=== PATIENT | male | born 1955 | race Caucasian/White ===

== ENCOUNTER 2020-03-21 04:46 | Observation (INO) ==
--- NOTE | 2020-02-25 13:42 | PAT Medication Instructions ---
Medication Instructions Date of Service February 25, 2020 Home Medications Medication Instructions Recorded potassium chloride 10 mEq 20 meq PO BID #120 cap 01/13/20 capsule,extended release tramadol 50 mg tablet 50 mg PO Q4H PRN #60 tab 01/31/20 3-in-1 Commode #1 ea 02/17/20 3-in-1 Commode #1 ea 02/17/20 Wheeled Walker #1 ea 02/17/20 metoprolol succinate 50 mg 50 mg PO BID #60 tab 02/21/20 tablet,extended release 24 hr warfarin 7.5 mg tablet 5 - 7.5 mg PO QPM potassium chloride 10 mEq capsule,extended release 20 meq PO BID tramadol 50 mg tablet 50 mg PO Q4H PRN metoprolol succinate 50 mg tablet,extended release 24 hr 50 mg PO BID aspirin [Aspir-81] 81 mg PO QAM famotidine 20 mg PO QAM finasteride 5 mg PO QAM furosemide [Lasix] 40 mg PO DAILY PRN ASK your prescriber and surgeon warfarin 7.5 mg tablet 5 - 7.5 mg PO QPM DO NOT take the morning of surgery potassium chloride 10 mEq capsule,extended release 20 meq PO BID furosemide [Lasix] 40 mg PO DAILY PRN Take morning of surgery With a small sip of water, OTHERWISE NOTHING TO EAT OR DRINK AFTER MIDNIGHT: tramadol 50 mg tablet 50 mg PO Q4H PRN (if needed, may be taken up to four hours before surgery) metoprolol succinate 50 mg tablet,extended release 24 hr 50 mg PO BID aspirin [Aspir-81] 81 mg PO QAM famotidine 20 mg PO QAM finasteride 5 mg PO QAM Take evening before surgery potassium chloride 10 mEq capsule,extended release 20 meq PO BID tramadol 50 mg tablet 50 mg PO Q4H PRN (if needed) metoprolol succinate 50 mg tablet,extended release 24 hr 50 mg PO BID furosemide [Lasix] 40 mg PO DAILY PRN (if needed) Other Notes If you have any questions please call us at [phone] or [phone] or [phone] or [phone]
--- NOTE | 2020-02-28 08:22 | Anesthesiology Consultation ---
Date of Service February 28, 2020 Assessment & Plan (1) Encounter for pre-operative examination: COVID Status: As of 02/24 nurse assessment, patient denies travel to endemic area, known exposure/sick contacts, or symptoms of COVID19. Preoperative COVID19 testing to be completed prior to surgery. Cardiology Clearance 02/14/20 = "Cardiac castellon has been stable, no evidence of heart failure, no arrhythmias, no angina. Patient is intermediate risk for moderate risk surgery. He had prosthetic mitral valve in 10/2019 for endocarditis so any procedure does put him at higher risk of valve infection especially in the first 6 months. He does understand this." K+ mildly elevated at 5.3 on pre-op testing. Case d/w Dr. Trujillo. Given normal Cr specimen likely slightly hemolyzed. Spoke to patient -- he is not taking Lasix or KCL supplement. Advised to avoid K-rich foods prior to surgery. Recheck AM DOS. Chart Review Chart Review: Acceptable Risk for Surgery and Patient seen in Pre Admission Testing Teaching & Discussion Instructed NPO after midnight before surgery, except medications with 15 cc of water. Medication instructions provided according to the PAT guidelines. History Surgery Operation Date: 03/21/20 10:40 Proposed Procedures p Right Total Hip Arthroplasty - Zhneg Rice MD Height/Weight Height: 5 ft 11 in Weight: 80.5 kg Allergies Allergy/AdvReac Type Severity Reaction Status Date / Time No Known Drug Allergies Allergy Verified 02/23/20 15:02 Medications Home Medications Medication Instructions Recorded Confirmed Last Taken warfarin 7.5 mg tablet 5 - 7.5 mg PO QPM 12/28/19 02/23/20 Unknown potassium chloride 10 mEq 20 meq PO BID #120 cap 01/13/20 02/23/20 Unknown capsule,extended release tramadol 50 mg tablet 50 mg PO Q4H PRN #60 tab 01/31/20 02/23/20 Unknown 3-in-1 Commode #1 ea 02/17/20 02/17/20 Unknown 3-in-1 Commode #1 ea 02/17/20 02/17/20 Unknown Wheeled Walker #1 ea 02/17/20 02/17/20 Unknown metoprolol succinate 50 mg 50 mg PO BID #60 tab 02/21/20 02/23/20 Unknown tablet,extended release 24 hr aspirin [Aspir-81] 81 mg PO QAM 02/23/20 02/23/20 Unknown famotidine 20 mg PO QAM 02/23/20 02/23/20 Unknown finasteride 5 mg PO QAM 02/23/20 02/23/20 Unknown furosemide [Lasix] 40 mg PO DAILY PRN 02/23/20 02/23/20 Unknown Past Medical History Medical History Anxiety " WHITE COAT" SYNDROME-DOES NOT WANT TO SEE OPERATING ROOM CVA (cerebral vascular accident) 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 Has fully recovered with no deficits. Degenerative joint disease of right hip Enlarged prostate GERD (gastroesophageal reflux disease) Mitral valve disease s/p mitral valve repair 11/11/19 [facility] On anticoagulant therapy WARFARIN S/P MV REPLACEMENT Paroxysmal A-fib Post-op after valve replacement, converted to SR with amio bolus. On coumadin for valve replacement currently. Completed Zio patch, results pending. Per cardio if afib found patient will need assisted AC. Subarachnoid hemorrhage 11/03/19 Exercise / Class Metabolic Activity III < 4 Walking/Shop/Light housework (Using walker for ambulation due to debilitating hip pain, denies any chest pain or SOB) Past Family History Family History Mother Heart disease Breast cancer Family history of diabetes mellitus Father Prostate cancer Colorectal cancer Past Surgical History Surgical History History of colonoscopy History of heart valve replacement MITRAL VALVE 11/04/2019 [facility]U [facility] History of vasectomy Past Anesthesia History No Hx of Anesthesia Complications and No Family Hx of Anesthesia Complications History of PONV No Hx of PONV and No Hx of Motion Sickness Social History Smoking Status: Never smoker Do You Dip or Chew Tobacco: No Hx Alcohol Use: Yes Alcohol type: wine alcohol intake frequency: holidays/special occasions only Alcohol Intake Frequency Comment: RARELY Hx Substance Use: No Review of Systems Pt denies any recent chest pain, shortness of breath, palpitations, cough, fever or URI. Physical Exam Vital Signs BP: 142/90 P: 61bpm SPO2: 98% RA T: 97.8 F R: 16 ENMT Mouth: + dental restorations (partial crown upper) and + chipped teeth (one premolar upper L); no loose teeth Thyromental Distance: > or= 3.5 Finger Breadths (3.5) Mallampati Class: I Neck normal visual inspection, + limited neck extension (mildly) and + facial hair (very short goatee) Respiratory normal respiratory effort Auscultation: lungs clear to auscultation bilaterally Cardiovascular Rate/Rhythm: regular rate and regular rhythm Heart Sounds: no murmur Extremities: no edema Testing Laboratory Results 02/28/20 08:40 02/28/20 08:40 PT 23.3 Seconds (9.0-12.0) H 02/28/20 08:40 INR 2.3 (0.9-1.1) H 02/28/20 08:40 APTT 42.8 Seconds (21.0-31.0) H 02/28/20 08:40 Blood Type O Positive 02/28/20 08:40 Antibody Screen NEGATIVE 02/28/20 08:40 Electrocardiogram Date: 12/03/19 Findings: + ST @ (119 bpm) Cannot r/o anterior infarct, age undetermined. *Patient cleared by cardio with this EKG. RRR with rate in 60s at [facility]. Chest X-Ray Date: 11/17/19 Stable bibasilar atelectasis and small L pleural effusion. *Lungs CTA B/L on exam at [facility], pt asymptomatic. Echocardiogram Date: 11/14/19 EF: 60-64% No pericardial effusion is noted. Normal LV size and systolic function. Septal motion is abnormal consistent with a postoperative state. The regional left ventricular wall motion is otherwise normal. RV size is qualitatively normal. Image resolution does not allow for accurate measurement. Right ventricular systolic function is qualitatively normal. Mild aortic valve regurgitation is present. There is a mitral valve prosthesis present. Significant mitral valve prosthesis stenosis is absent. Significant mitral valve prosthesis regurgitation is absent. The aortic root is moderately enlarged.
[2020-02-28 11:36] LABS: Basophils # (auto) 0.02 K/uL (0-0.2); Basophils % (auto) 0.3 %; Eosinophils # (auto) 0.14 K/uL (0-0.5); Eosinophils % (auto) 1.9 %; Hematocrit (blood only) 42.7 % (42-52); Hemoglobin 13.4 g/dL (14.0-18.0); Immature Granulocytes # (auto) 0.01 K/uL (0.00-0.02); Immature Granulocytes % (auto) 0.1 %; Lymphocytes % (auto) 20.2 %; Mean Corpuscular Hemoglobin 29.6 pg (25-34); Mean Corpuscular Hgb Conc 31.4 g/dL (32-36); Mean Corpuscular Volume 94.3 fL (80-100); Mean Platelet Volume 10.8 fL (7.4-10.4); Monocytes # (auto) 0.94 K/uL (0.11-0.59); Monocytes % (auto) 12.7 %; Neutrophils # (auto) 4.82 K/uL (1.4-6.5); Neutrophils % (auto) 64.8 %; Platelet Count 239 K/uL (130-400); RDW Coefficient of Variation 15.2 % (11.5-14.5); RDW Standard Deviation 52.3 fL (36.4-46.3); Red Blood Count 4.53 M/uL (4.7-6.1); White Blood Count 7.43 K/uL (4.8-10.8)
[2020-02-28 11:44] LABS: BUN Creatinine Ratio 23.7 (10-20); Calcium 9.3 mg/dl (8.5-10.1); Creatinine Clr Calc Pharmacy 83.9 ml/min; Est GFR (African American) 97.1; Est GFR (Non-African American) 83.8; Potassium 5.3 mmol/L (3.5-5.1)
[2020-02-28 11:51] LABS: C Reactive Protein 0.6 mg/dl (0-0.29)
[2020-02-28 11:52] LABS: INR 2.3 (0.9-1.1); Partial Thromboplastin Ratio 1.5; Partial Thromboplastin Time 42.8 Seconds (21.0-31.0); Prothrombin Time 23.3 Seconds (9.0-12.0)
--- NOTE | 2020-03-05 11:58 | History and Physical Report ---
DATE OF ADMISSION: 03/21/2020 CHIEF COMPLAINT: Right hip pain and discomfort. HISTORY OF PRESENT ILLNESS: The patient is a 64-year-old gentleman from [place], who presents for treatment of his right hip. He has a very complex medical history recently due to bacterial endocarditis and some septic emboli along with a subarachnoid hemorrhage. This all resulted in a mitral valve replacement and some open heart surgery and then a course of IV antibiotics. This was all done at [facility]. He had septic emboli, which caused some degree of TIA and mini strokes, but minimal residual sequelae. This all happened in October. He had 6 weeks of IV antibiotics and now off all antibiotics and doing well. He is now debilitated by his right hip pain. He has been through extensive rehab, but markedly limited by his hip pain and discomfort. He has been using a walker and has not been able to get off of this due to his hip problem. He describes groin pain. He has pain with every step. He denies any recent fevers. He has been followed by his demolition hammer operator at [facility]. He did have some AFib at this time as well and was put on Coumadin. They are currently reevaluating him to determine whether they come off the Coumadin. PAST MEDICAL HISTORY: Past medical history is significant for: 1. Atrial fibrillation, recent onset with currently in sinus tachycardia and wearing a monitor to determine whether he still needs the anticoagulation. 2. Sleep apnea. 3. Sepsis with endocarditis and septic emboli causing TIA and mini strokes. 4. Bacterial endocarditis, status post 6 weeks of IV antibiotics in October. 5. Gastroesophageal reflux disease. 6. Back pain/sciatica. 7. BPH. 8. Kidney stones. PAST SURGICAL HISTORY: Previous surgeries include open heart surgery for infection treatment as well as repair of his mitral valve. ALLERGIES: None. CURRENT MEDICINES: Include: 1. Aspirin. 2. Finasteride. 3. Unspecified med 4. Coumadin. 5. Tramadol. 6. Metoprolol. 7. Cardio-Plus. 8. Unspecified med 9. Boswellia. SOCIAL HISTORY: A 64-year-old male. 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 He does not smoke. No significant alcohol intake. FAMILY HISTORY: Noncontributory. REVIEW OF SYSTEMS: Significant for atrial fibrillation, on Coumadin. Denies any current chest pain or shortness of breath. No DVT or PE. He has had this endocarditis with some septic emboli causing some TIAs. PHYSICAL EXAMINATION: GENERAL: Shows a pleasant, middle-aged male. He looks clinically much healthier than his reported recent history. HEENT: Benign. NECK: Supple, no lymphadenopathy. LUNGS: Clear to auscultation. HEART: Regular rate and rhythm. ABDOMEN: Soft, nontender, nondistended. EXTREMITIES: Reveals grossly neurovascularly intact except as follows. Examination of the right hip and leg reveals the patient walks with use of a walker. Walks with a markedly antalgic gait. He is about a centimeter short on the right side compared to left. He has very stiff hip with limited motion. He has got no knee effusion. Mild diffuse edema distally. X-RAYS: X-rays of the right hip reviewed. It shows advanced right hip DJD. He has complete loss of superior joint space with collapse of the femoral head and cystic changes on both sides of the joint. He has got large medial acetabular osteophyte. There are no signs of bone destruction or infection. He has x-rays of his knee which revealed fairly minimal arthritic change. ASSESSMENT: A 64-year-old male, in the past reasonably healthy, with a recent bout of bacterial endocarditis with a valve replacement and extensive management complicated by some atrial fibrillation as well as septic emboli. It appears that he has recovered from this and markedly debilitated by his hip pain. He has been unable to get off the walker and back to work due to his hip problem. He would like to have his hip replaced. PLAN: We talked about treatment options. He is certainly at increased risk for infection, but it looks like his infection is cleared. He has been pretty well cleared by the demolition hammer operator, but they are trying to determine whether he needs to stay on the Coumadin. After extensive discussion, he understands the increased risk and would like to proceed. We are going to proceed with a right total hip replacement. The risks and benefits of this procedure were explained to the patient including but not limited to DVT, PE, , infection, neurological injury, vascular injury, bleeding problem, pain, limited range of motion, stiffness, failure to relieve his symptoms, incomplete relief of symptoms, need for further surgery in future, fracture, leg length inequality, nerve palsy and infection. I do think he is at slightly increased risk of infection, but I do not think it is markedly increased based on the above. He seems to be adequately treated for his endocarditis and I do not think there is much more he can do. We did check some labs and his sed rate is just slightly elevated at 30 and C-reactive protein slightly elevated at 0.60. He is to determine whether he needs to be on Coumadin. He will need to stop his Coumadin 5 days preop. They may take him off Coumadin beforehand. We talked about taking metoprolol the morning of surgery. We are going to proceed as long as he proceeds with a complete cardiac clearance. He will be discharged to home using [facility]. DANITA
[2020-03-21 05:58] LABS: INR 1.1 (0.9-1.1); Partial Thromboplastin Ratio 1.1; Partial Thromboplastin Time 29.3 Seconds (21.0-31.0); Prothrombin Time 11.2 Seconds (9.0-12.0)
[2020-03-21] MEDS ORDERED: FAMOTIDINE 20 MG TAB PO SCH (06:00)
[2020-03-21] MEDS ORDERED: ACETAMINOPHEN 500 MG TAB PO SCH (06:00)
[2020-03-21] MEDS ORDERED: METOCLOPRAMIDE HCL 10 MG TABLET PO SCH (06:00)
[2020-03-21] MEDS ORDERED: CEFAZOLIN 2000MG 2,000 MG/15 ML SYR IV SCH (06:00)
[2020-03-21] MEDS ORDERED: TRANEXAMIC ACID 1,000 MG **IV Pre-op IV SCH (06:00)
[2020-03-21] MEDS ORDERED: LR 60ML/HR IV SCH (06:00)
[2020-03-21] MEDS ORDERED: SCOPOLAMINE 1.5 MG TDSY TD SCH (06:00)
[2020-03-21] MEDS ORDERED: LR 500ML BOLUS, THEN 15ML/HR IV SCH (06:00)
[2020-03-21] MEDS ORDERED: BUPIVACAINE LIPOSOME/PF 266 MG, BUPIVACAINE/EPINEPHRINE 50 ML, SODIUM CHLORIDE 0.9% 30 ... INFIL SCH (06:00)
[2020-03-21] MEDS ORDERED: GABAPENTIN 600 MG DOSE PO SCH (06:00)
[2020-03-21 06:12] LABS: BUN Creatinine Ratio 25.1 (10-20); Calcium 8.8 mg/dl (8.5-10.1); Creatinine Clr Calc Pharmacy 71.6 ml/min; Est GFR (African American) 80.9; Est GFR (Non-African American) 69.8; Potassium 3.7 mmol/L (3.5-5.1)
[2020-03-21] MEDS ORDERED: MIDAZOLAM HCL 1 MG/ML 2ML VIAL ONE ×2 (06:24→06:25)
[2020-03-21] MEDS ORDERED: fentaNYL citrate 100 MCG/2 ML VIAL ONE (06:24)
[2020-03-21] MEDS ORDERED: MoRPHine SULFATE PF 1 MG/ML 10 ML AMP/VIAL ONE (06:25)
[2020-03-21] MEDS ORDERED: BUPIVACAINE 0.5 % 5 MG/1 ML PF 10ML VIAL ONE (06:33)
[2020-03-21] MEDS ORDERED: BUPIVACAINE 0.5 % 5 MG/1 ML MPF 30ML VIAL ONE (06:48)
[2020-03-21] MEDS ORDERED: BACITRACIN INJ 50,000 UNIT VIAL ONE (06:48)
[2020-03-21] MEDS ORDERED: EPINEPHrine INJ 1 MG/ML AMP ONE (06:48)
--- NOTE | 2020-03-21 06:52 | History & Physical Bridge Note ---
Date of Service March 21, 2020 History & Physical Bridge Note I have examined the patient, reviewed the History & Physical and in the interval since the performance of the History & Physical I have noted the following changes of clinical significance: no changes noted
[2020-03-21] MEDS ORDERED: fentaNYL citrate 100 MCG/2 ML VIAL IV PRN (07:12)
[2020-03-21] MEDS ORDERED: ePHEDrine sulfate 50 MG/ML AMP IV PRN (07:12)
[2020-03-21] MEDS ORDERED: ATROPINE SULFATE 0.1 MG/ML 10ML SYR IV PRN (07:12)
[2020-03-21] MEDS ORDERED: HYDROmorphone INJ 1 MG/ML SYRINGE IV PRN (07:12)
[2020-03-21] MEDS ORDERED: ONDANSETRON INJ 2 MG/ML 2 ML VIAL IV PRN ×2 (07:12→09:35)
[2020-03-21] MEDS ORDERED: HYDROmorphone INJ 2 MG/ML SYR/VIAL ONE (07:23)
[2020-03-21] MEDS ORDERED: DEXAMETHASONE SOD INJ 4 MG/ML VIAL ONE (07:52)
[2020-03-21] MEDS ORDERED: PROPOFOL IV EMULSION 10 MG/ML 20 ML VIAL IV ONE ×2 (07:52→08:10)
[2020-03-21] MEDS ORDERED: LIDOCAINE HCL 2% 2 ML VIAL/AMP(20MG/ML) INFIL ONE (07:52)
[2020-03-21] MEDS ORDERED: ONDANSETRON INJ 2 MG/ML 2 ML VIAL ONE (07:52)
--- NOTE | 2020-03-21 08:29 | Post Operative Brief Note ---
PG Immediate Post Op with CF Date of Surgery March 21, 2020 Pre & Post Diagnosis Operation Date: 03/21/20 07:00 Pre-Op Diagnosis: Right Hip Advanced Degenerative Joint Disease Post-Op Diagnosis: Right Hip Advanced Degenerative Joint Disease I identified the patient and participated in the time-out.: Yes Procedure Operation Date: 03/21/20 07:00 Actual Procedures p Right Total Hip Arthroplasty--Uncemented(Right) - Zheng Rice MD Surgeon Zheng Rice MD Library Technical Assistant Ashley, [facility] Estimated Blood Loss 200 Findings Consistent with Post-Op Diagnosis Fluids 1000 cc Specimens Specimen Description: A. Right Femoral Head Anesthesia Type General Complications none Disposition Accompanied Patient To Recovery: Yes Disposition: Recovery Room
[2020-03-21] MEDS ORDERED: ePHEDrine sulfate 50 MG/ML AMP ONE (08:37)
--- NOTE | 2020-03-21 08:41 | Operative Report ---
Post Operative Report Pre & Post Diagnosis Operation Date: 03/21/20 07:00 Pre-Op Diagnosis: Right Hip Advanced Degenerative Joint Disease Post-Op Diagnosis: Right Hip Advanced Degenerative Joint Disease I identified the patient and participated in the time-out.: Yes Procedure Operation Date: 03/21/20 07:00 Actual Procedures p Right Total Hip Arthroplasty--Uncemented(Right) - Zheng Rice MD Surgeon Zheng Rice MD Fountain Helper Ashley, PAC Estimated Blood Loss 200 Findings Consistent with Post-Op Diagnosis Operative findings revealed advanced right hip DJD. He had extensive grade 4 [id number] disease of the femoral head and acetabulum. He had a large medial osteophyte. He had about a 1 cm leg length discrepancy. Fluids 1000 cc. Specimens Right femoral head sent for pathology. Drains None. 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 He did have a recent sepsis and bacteremia and pretty sick and a heart surgery for bacterial endocarditis in October. He recovered from this but was unable get back to work due to severe hip pain. He was unable to get off these walker. X-rays show advanced hip DJD. He was evaluated by the service member and cleared for surgery. He elected proceed with total hip replacement. He certainly understood the increased risk due to his recent bacteremia. Description of Procedure Operative implants consist of: 1. Biomet G7 size 58 mm acetabular shell. 2. 6.5 cancellus acetabular screws 1 of 35 mm length and 1 of 25 mm length. 3. [place] hole eliminator. 4. Highly cross-linked polyethylene liner with a +5 offset with a 58 mm outer diameter and 36 mm inner diameter. 5. Nicole Corail size 13 KLA femoral stem. 6. +8.5/36 mm ceramic articular ball. Patient was taken to the operating identified and placed on the operating table supine position protectors were properly padded. IV antibiotics arrived by anesthesia team. A general anesthetic was implemented as the patient refused a spinal. The patient was then placed in the left lateral decubitus position. An axillary roll was placed. A Stulberg hip positioner was used for positioning. The right hip and leg were then prepped and draped in usual sterile fashion. A posterior lateral approach to the right hip was then performed to a curvilinear incision centered over the greater trochanter. Sharp dissection got through subcutaneous tissue down to the IT band gluteal fascia the IT band gluteal fascia incised longitudinally in line with skin incision. The underlying greater truck bursa was excised. The piriformis and external rotators were tagged and taken off the posterior aspect hip joint capsule. Gr eat care was taken throughout the procedure protect the sciatic nerve at all times. A posterior capsulotomy was then performed leaving a large flap for later repair. Hip was internally rotated and dislocated. A femoral neck osteotomy cut was then made with Final Cut about a centimeter above the lesser trochanter. Femoral head was removed and sent for pathology. The femur was retracted anteriorly. Attention drawn the acetabulum. The acetabulum labrum was excised per the pulmonary fat was excised. Sequential reaming the acetabular was then performed begin with size 47 progressing up to a 57. A 58 mm Biomet G7 acetabular shell was then placed in about 40 degrees lateral opening and 20 degrees of anteversion. It was fixed with two 6.5 cancellus acetabular screws. Trial liner was placed. Attention drawn the femur. The proximal femur was entered with a cookie-cutter followed by canal finder. I then broached begin the size 8 and progressing up to 13. We got excellent fit at 13. Calcar reamer was used smooth and off the calcar. I then trialed the hip. The soft tissue tension was quite lax with the standard implants and therefore I used a +5 offset acetabular liner and a +8.5 head in order to improve soft tissue tension and laxity. Hip was fully stable in full extension and external rotation flexion 10 9 degrees internal rotation over 50 degrees. Leg lengths seemed appropriate and equal. We elect to place these implants. All trial implants were removed. An apex hole luminary was placed. A +5 offset acetabular liner was placed. A KLA 13 femoral stem was impacted in position. A +8.5/36 mm ceramic articular ball was placed. Hip was located once again found to be stable. Attention drawn toward closing. The wounds irrigated closed muscle pulsatile lavage solution. I did inject locally with 60 cc of half percent Marcaine with epinephrine. Patient did receive 1 g of tranexamic acid at the beginning of the surgery. The hip was irrigated extensively. The posterior capsule and external rotators then repaired through drill holes in the posterior trochanter with #2 Tycron suture. The IT band gluteal fascia then closed in 1 PDS suture running fashion the subcutaneous tissue then closed in 2 layers the deep layer #1 Vicryl suture and subcutaneous tissues with 2-0 Dexon suture in a buried interrupted fashion. Skin was closed with skin zuleima. Leg was then cleaned dried a sterile dressing composed Xeroform, 4 x 4's, sterile ABD pad and foam tape was applied. The patient then placed on the transport cart and then brought out of general anesthesia and transferred to the recovery room in stable condition. The patient tolerated procedure well no complications. I attest to the content of the Intraoperative Record and any orders documented therein. Any exceptions are noted below.
--- NOTE | 2020-03-21 08:56 | XRay Report ---
XR hip 1V RT w pelvis HISTORY: 65 years-old Male IN PACU - A/P PELVIS and LATERAL HIP right hip total joint arthroplasty COMPARISON: Right hip radiographs 01/29/2020 TECHNIQUE: AP view of the pelvis with crosstable lateral view of the right hip FINDINGS: Right hip total joint arthroplasty demonstrates satisfactory alignment. Lateral skin zuleima are note d along with expected postsurgical soft tissue swelling and deep tissue air. No acute fracture or ret ained foreign body. Surgical clips project over the scrotum. Mild left posteroparietal arthritis. IMPRESSION: Right hip total joint arthroplasty with expected postoperative findings. ACT 112: Negative or not required by law. The above report was generated using voice recognition software. It may contain grammatical, syntax o r spelling errors. Electronically signed by: Jeff Paris M.D. 03/21/2020 8:54 AM
[2020-03-21] MEDS ORDERED: TAMSULOSIN HCL 0.4 MG CAP PO PRN (09:35)
[2020-03-21] MEDS ORDERED: WARFARIN SOD 7.5 MG TAB PO ONE ×2 (09:35→16:00)
[2020-03-21] MEDS ORDERED: POTASSIUM CHLORIDE 20 MEQ TABCR PO PRN (09:35)
[2020-03-21] MEDS ORDERED: FUROSEMIDE 40 MG TAB PO PRN (09:35)
[2020-03-21] MEDS ORDERED: bisacodyL 10 MG SUPP PR PRN (09:35)
[2020-03-21] MEDS ORDERED: HYDROmorphone INJ 0.5 MG/0.5 ML SYR IV PRN (09:35)
[2020-03-21] MEDS ORDERED: NALOXONE HCL 0.4 MG/1 ML VIAL/CARP IV PRN (09:35)
[2020-03-21] MEDS ORDERED: MAGNESIUM HYDROXIDE SUSP 30 ML UDC PO PRN (09:35)
[2020-03-21] MEDS ORDERED: METOCLOPRAMIDE HCL INJ 5 MG/ML 2 ML VIAL IV PRN (09:35)
--- NOTE | 2020-03-21 10:14 | Anesthesiology Progress Note ---
Date of Service March 21, 2020 Anesthesia Post Procedure Vital Signs Vital Signs: Temp Pulse Pulse Resp BP Pulse Ox 03/21/20 09:49 68 16 111/67 98 03/21/20 09:15 36.4 C L 68 14 108/68 96 03/21/20 09:05 65 16 105/66 97 03/21/20 08:55 67 17 108/67 97 03/21/20 08:45 65 15 104/63 99 03/21/20 08:36 36.2 C L 72 12 118/67 100 03/21/20 05:50 36.8 C 65 18 142/94 H 98 Transfer of Care Handoff Completed per policy Notes Mental Status: alert / awake / arousable and participated in evaluation Patient Amnestic to Procedure: Yes Nausea / Vomiting: adequately controlled Pain: adequately controlled Airway Patency, RR, SpO2: stable & adequate BP & HR: stable & adequate Hydration State: stable & adequate Anesthetic Complications: no major complications apparent and Pt Satisfied with anesthetic care
[2020-03-21] MEDS: METOPROLOL SUCC 50MG EXT REL TAB PO SCH ×2 (11:24→21:15)
[2020-03-21] MEDS: SODIUM CHLORIDE 0.9% 1000ML 1,000 ML IV SCH ×2 (11:28→20:40)
[2020-03-21] MEDS: MULTIVITAMIN TAB PO SCH (11:29)
[2020-03-21] MEDS: ASPIRIN 81 MG ECTAB PO SCH (11:30)
[2020-03-21] MEDS: DOCUSATE SODIUM 100 MG CAP PO SCH ×2 (11:30→20:36)
[2020-03-21] MEDS: FAMOTIDINE 20 MG TAB PO SCH (11:30)
[2020-03-21] MEDS: KETOROLAC 30 MG/ML VIAL IV SCH ×3 (11:35→21:46)
[2020-03-21] MEDS: ACETAMINOPHEN 500 MG TAB PO SCH ×2 (13:59→21:46)
[2020-03-21] MEDS: FINASTERIDE 5 MG TAB PO SCH (13:59)
[2020-03-21] MEDS: CEFAZOLIN 2000MG 2,000 MG/15 ML SYR IV SCH ×2 (14:01→21:45)
[2020-03-21] MEDS ORDERED: TRANEXAMIC ACID / 0.7% NACL 1,000 MG/100 ML BAG IV SCH (14:33)
[2020-03-21] MEDS: CHECK SCOPOLAMINE PATCH PLACEMENT SCH ×2 (16:29→23:58)
--- NOTE | 2020-03-21 17:58 | Progress Notes ---
DATE: 03/21/2020 SUBJECTIVE: A 65-year-old gentleman postop from right total hip replacement. He is doing well. Not having any pain yet. No chest pain or shortness of breath. Not feeling dizzy or lightheaded. OBJECTIVE: VITAL SIGNS: Temperature is 36.4. Vital signs are stable. GENERAL: Shows a pleasant middle-aged male. He is sitting up in bed and talking to his and looks quite comfortable. LUNGS: Clear to auscultation. HEART: Has a regular rate and rhythm. ABDOMEN: Soft, nontender, nondistended. EXTREMITIES: Grossly neurovascularly intact except as follows: Examination of the right hip and leg reveals the leg lengths are equal. Hip is located. Dressing is clean, dry and intact. Thigh is soft and supple. He can dorsiflex and plantarflex his foot appropriately. He is neurologically intact. X-RAYS: X-rays of the right hip from recovery room are reviewed. It shows a right uncemented total hip arthroplasty. Components looked to be in good position. No signs of problems. ASSESSMENT: A 65-year-old gentleman postoperative from right total hip replacement, doing well. His pain is controlled. Hip is located. He is neurologically intact. PLAN: 1. DVT prophylaxis including thigh-high TEDs, SCDs, and we will start him back on Coumadin tonight. We will load him with 10 mg tonight and probably 7 mg tomorrow and then start him on his regular dose after that. 2. PT/OT. Weight bear as tolerated. Right total hip protocol. 3. Pain control, doing well with current pain regimen. 4. IV antibiotics x24 hours. 5. Disposition: Plan to discharge to home with some home health and his 's assistance once medically stable and adequately recovered.
[2020-03-21] MEDS: ASCORBIC ACID 500 MG TAB PO SCH (18:24)
[2020-03-21] MEDS: FERROUS GLUCONATE 324 MG TAB PO SCH (18:25)
[2020-03-21] MEDS: SENNA 8.6 MG TAB PO SCH (20:36)
[2020-03-22] MEDS: TRAMADOL HCL 50 MG TABLET PO PRN ×3 (00:01→22:04)
[2020-03-22] MEDS: KETOROLAC 30 MG/ML VIAL IV SCH (04:33)
[2020-03-22] MEDS: ACETAMINOPHEN 500 MG TAB PO SCH ×3 (06:14→22:06)
[2020-03-22 06:18] LABS: Basophils # (auto) 0.01 K/uL (0-0.2); Basophils % (auto) 0.1 %; Eosinophils # (auto) 0.07 K/uL (0-0.5); Eosinophils % (auto) 0.9 %; Hemoglobin 10.9 g/dL (14.0-18.0); Immature Granulocytes # (auto) 0.02 K/uL (0.00-0.02); Immature Granulocytes % (auto) 0.3 %; Lymphocytes # (auto) 1.25 K/uL (1.2-3.4); Lymphocytes % (auto) 15.6 %; Mean Corpuscular Hemoglobin 29.8 pg (25-34); Mean Corpuscular Hgb Conc 32.1 g/dL (32-36); Mean Corpuscular Volume 92.9 fL (80-100); Mean Platelet Volume 10.4 fL (7.4-10.4); Monocytes # (auto) 1.49 K/uL (0.11-0.59); Monocytes % (auto) 18.6 %; Neutrophils # (auto) 5.16 K/uL (1.4-6.5); Neutrophils % (auto) 64.5 %; Platelet Count 150 K/uL (130-400); RDW Coefficient of Variation 14.9 % (11.5-14.5); RDW Standard Deviation 50.7 fL (36.4-46.3); Red Blood Count 3.66 M/uL (4.7-6.1)
[2020-03-22] MEDS: SODIUM CHLORIDE 0.9% 1000ML 1,000 ML IV SCH (06:18)
[2020-03-22 06:34] LABS: BUN Creatinine Ratio 21.3 (10-20); Calcium 8.5 mg/dl (8.5-10.1); Creatinine Clr Calc Pharmacy 84.6 ml/min; Est GFR (African American) 98.9; Est GFR (Non-African American) 85.3; Potassium 3.9 mmol/L (3.5-5.1)
[2020-03-22 06:41] LABS: INR 1.1 (0.9-1.1); Prothrombin Time 11.5 Seconds (9.0-12.0)
[2020-03-22] MEDS ORDERED: WARFARIN SOD 7.5 MG TAB PO SCH (08:00)
--- NOTE | 2020-03-22 08:02 | Progress Notes ---
DATE: 03/22/2020 SUBJECTIVE: A 65-year-old gentleman postop day 1 from a right hip replacement. He is doing pretty well. Feeling a little bit more sore today. No chest pain or shortness of breath. Not feeling dizzy or lightheaded. OBJECTIVE: VITAL SIGNS: Temperature 36.8. Vital signs stable. GENERAL: Shows a pleasant elderly male. He is lying in bed, looks comfortable. EXTREMITIES: Examination of the right hip and leg reveals his leg lengths to be equal. Dressing is clean, dry, and intact. He can dorsiflex and plantarflex his foot appropriately. He is neurologically intact. Thigh is soft and supple. LABORATORY DATA: Hemoglobin is 10.9. Hematocrit 34.0. Electrolytes are stable. His INR is 1.1. ASSESSMENT: A 65-year-old gentleman postop day 1 from a right hip replacement, doing pretty well. Pain is controlled. Hip is located. He is neurologically intact. PLAN: 1. DVT prophylaxis including thigh-high TEDs, SCDs, and back on Coumadin. 2. PT/OT. He can weightbear as tolerated. Right total hip protocol. 3. Pain control, doing pretty well with current pain regimen. 4. Disposition: Plan to discharge to home with some home health likely tomorrow depending on how well his pain goes and his recovery goes.
[2020-03-22] MEDS: CHECK SCOPOLAMINE PATCH PLACEMENT SCH ×3 (08:28→23:53)
[2020-03-22] MEDS: DOCUSATE SODIUM 100 MG CAP PO SCH ×2 (08:30→22:05)
[2020-03-22] MEDS: ASCORBIC ACID 500 MG TAB PO SCH ×2 (08:30→17:51)
[2020-03-22] MEDS: FERROUS GLUCONATE 324 MG TAB PO SCH ×2 (08:30→17:52)
[2020-03-22] MEDS: MULTIVITAMIN TAB PO SCH (08:31)
[2020-03-22] MEDS: FAMOTIDINE 20 MG TAB PO SCH (08:31)
[2020-03-22] MEDS: ASPIRIN 81 MG ECTAB PO SCH (08:31)
[2020-03-22] MEDS: FINASTERIDE 5 MG TAB PO SCH (08:32)
[2020-03-22] MEDS: METOPROLOL SUCC 50MG EXT REL TAB PO SCH ×2 (08:32→22:06)
[2020-03-22] MEDS: SENNA 8.6 MG TAB PO SCH (22:06)
[2020-03-23] MEDS: ACETAMINOPHEN 500 MG TAB PO SCH ×2 (05:24→13:39)
[2020-03-23 06:29] LABS: INR 1.4 (0.9-1.1); Prothrombin Time 14.7 Seconds (9.0-12.0)
[2020-03-23] MEDS: FERROUS GLUCONATE 324 MG TAB PO SCH (07:53)
[2020-03-23] MEDS: CHECK SCOPOLAMINE PATCH PLACEMENT SCH (07:58)
[2020-03-23] MEDS: TRAMADOL HCL 50 MG TABLET PO PRN ×2 (07:59→13:56)
[2020-03-23] MEDS ORDERED: WARFARIN SOD 5 MG TAB PO ONE (08:00)
--- NOTE | 2020-03-23 08:22 | Progress Notes ---
DATE: 03/23/2020 SUBJECTIVE: A 65-year-old gentleman postop day 2 from a right hip replacement. He is having a bit more soreness today. No chest pain or shortness of breath. Not feeling dizzy or lightheaded. Therapy went reasonably well. OBJECTIVE: VITAL SIGNS: Temperature 37.0. Vital signs stable. GENERAL: Shows a pleasant, middle-aged male. He is lying in bed and looks pretty comfortable. EXTREMITIES: Examination of the right hip and leg reveals the dressing to be clean, dry and intact. Leg lengths are equal. He can dorsiflex and plantarflex his foot appropriately. He is neurologically intact. LABORATORY DATA: INR is 1.4. ASSESSMENT: A 65-year-old gentleman postop day 2 from right hip replacement, doing pretty well. His pain is controlled. He is neurologically intact. A little bit more muscle soreness which is not unexpected. INR is still not quite therapeutic. PLAN: 1. DVT prophylaxis including thigh-high TEDs, SCDs. He is back on Coumadin. We will put him back on his standard dose today. 2. PT/OT. Weight bear as tolerated. Right total hip protocol. 3. Pain control, doing well with current pain regimen. He is having some muscle soreness which is not unexpected. 4. Disposition: Plan to discharge to home with some home health later today.
[2020-03-23] MEDS: ASPIRIN 81 MG ECTAB PO SCH (08:53)
[2020-03-23] MEDS: MULTIVITAMIN TAB PO SCH (08:53)
[2020-03-23] MEDS: FAMOTIDINE 20 MG TAB PO SCH (08:53)
[2020-03-23] MEDS: DOCUSATE SODIUM 100 MG CAP PO SCH (08:53)
[2020-03-23] MEDS: FINASTERIDE 5 MG TAB PO SCH (08:53)
[2020-03-23] MEDS: ASCORBIC ACID 500 MG TAB PO SCH (08:53)
[2020-03-23] MEDS: METOPROLOL SUCC 50MG EXT REL TAB PO SCH (08:53)
--- NOTE | 2020-03-28 15:43 | Discharge Summary ---
Date of Service March 28, 2020 Admission HPI Per Admitting Provider Documented in the H&P Admission Exam (Per Admitting) Constitutional Documented in the H&P Discharge Data Consultations 03/22/20 08:00 Consult Case Management - Discharge Planning Routine Procedures Performed Operation Date: 03/21/20 07:00 Actual Procedures p Right Total Hip Arthroplasty--Uncemented(Right) - Zheng Rice MD Hospital Course (1) Status post total hip replacement, right: 65-year-old male admitted on 03/21/2020 underwent total hip replacement. He tolerated the procedure well and there were no complications. He was transferred to the PACU postoperatively and later to the orthopedic for further care. He was given Ancef for antibiotic prophylaxis. He was given CARLY s tockings, SCDs, and Coumadin for DVT prophylaxis. His INR was monitored daily and his Coumadin was dosed accordingly. His hemoglobin hematocrit and vital signs are monitored during his hospital stay and remained stable. He did not require blood transfusions. There were no complications during his hospital stay By postoperative day 2 he was tolerating a regular diet, pain was controlled with oral pain medicine, he was participating in physical therapy. On postop day 2 was discharged home set up with home health services. He was given printed discharge instructions as well as new prescriptions for extra strength Tylenol and tramadol. Continue physical therapy. He is weightbearing as tolerated. Continue CARLY stockings. Continue total hip precautions. Follow-up in approximately 2 weeks postop or sooner if any problems or concerns. Coding Level of Care Code None Diagnoses Status post total hip replacement, right Z96.641
== END 2020-03-23 14:22 | disposition home health service (06) ==
LOC: 3E 04:46 → ASU 04:46

== ENCOUNTER 2024-07-30 06:25 | Observation (INO) ==
--- NOTE | 2024-07-08 08:54 | Anesthesiology Consultation ---
Date of Service July 08, 2024 Assessment & Plan (1) Encounter for pre-operative examination: - Infectious disease screening: Per assessment on 07/08/24- No known recent infectious disease contacts or current infectious disease symptoms. - Outpatient joint assessment: Pt currently scheduled for inpatient pathway. If surgeon requests review for outpatient joint pathway, patient is not recommended candidate for outpatient joint program from anesthesia standpoint based on available information. 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 Atrial fibrillation post op was on anticoagulation for few motnhs [sic].. CVA secondary to septic emboli with scattered focci Subarachnoid hemorrhage 11/03/2019.. Mild aortic valve regurgitation.. Aortic root enlargement 4.5 cm on echo.. History of SVT 2014.. TERRY on CPAP.. History of MSSA endocarditis of mitral valve 2019.. Ancelmo is here for follow up.. Has been back able to do his daily activities without problems denies chest pain.. does have occasional shortness of breath with more than minimal activity.. No dizziness or lightheadedness or syncopal episodes.. Echo reviewed stable valve function.. Needs prophylaxis for dental procedures.. Sinus tachycardia.. On Metoprolol xl 50 twice daily.. Aortic root moderately enlarged: No increase in size.. Dyslipidemia on pravastatin 10 mg.. Return in about 1 year" - S/P Right NIKIA (03/21/2020): Grade 1 view, MAC#3, ETT 7.5 at [facility] - Patient concern/request: "Does not want to see the inside of the OR" Chart Review Chart Review: Acceptable Risk for Surgery and Patient seen in Pre Admission Testing Teaching & Discussion Pre-Anesthesia Teaching/Discussion Notes: Instructed NPO after midnight before surgery,except medications with 15 cc of water. Medication instructions provided according to the PAT guidelines. History Surgery Operation Date: 07/30/24 12:35 Proposed Procedures p Left Total Hip Arthroplasty - Zheng Rice MD Height/Weight Height: 5 ft 11 in Weight: 91.4 kg Allergies Allergy/AdvReac Type Severity Reaction Status Date / Time corn Allergy Mild Nausea/vomi Verified 07/08/24 08:57 ting No Known Drug Allergies Allergy Verified 07/08/24 08:57 Medications Home Medications Medication Instructions Recorded Confirmed Last Taken aspirin 81 mg tablet,delayed 81 mg PO QAM 02/23/20 07/08/24 03/21/20 03:30 release (Aspir-) metoprolol succinate 50 mg 50 mg PO BID #180 tabs 01/15/24 07/08/24 Unknown tablet,extended release 24 hr famotidine 20 mg tablet 20 mg PO QAM #90 tabs 02/17/24 07/08/24 Unknown abiraterone 250 mg tablet 1,000 mg PO QAM 05/04/24 07/08/24 Unknown clonazepam 0.5 mg tablet (Klonopin) 0.5 mg PO HS PRN Sleep 05/04/24 07/08/24 Unknown prednisone 5 mg tablet 5 mg PO QAM 05/04/24 07/08/24 Unknown finasteride 5 mg tablet 5 mg PO QAM #90 tabs 05/20/24 07/08/24 Unknown tramadol 50 mg tablet 50 mg PO Q8H PRN pain #60 tabs 06/21/24 07/08/24 Unknown Wheeled Walker #1 ea 06/25/24 06/25/24 Unknown walker #1 ea 06/28/24 Unknown bicalutamide 50 mg tablet 50 mg PO UD 07/08/24 07/08/24 Unknown leuprolide (3 month) 22.5 mg (3 0 mg IM Q3M 07/08/24 07/08/24 Unknown month) intramuscular syringe kit (Lupron Depot) pravastatin 10 mg tablet 10 mg PO QPM 07/08/24 07/08/24 Unknown tamsulosin 0.4 mg capsule 0.4 mg PO QPM 07/08/24 07/08/24 Unknown Past Medical History Medical History BPH (benign prostatic hyperplasia) Degenerative joint disease of right hip Enlarged prostate GERD (gastroesophageal reflux disease) History of anemia History of anxiety Previous "white coat" issues resolved per patient History of CVA (cerebrovascular accident) (2019) 2019 2 septic emboli from endocarditis, with scattered focci No deficits HTN (hypertension) Hx of colonic polyps Hx of subarachnoid hemorrhage (2019) [facility], no residual issues Hyperlipidemia Mitral valve disease s/p MVR (2019), last echo 10/2023 TERRY on CPAP Paroxysmal A-fib Post-op after valve replacement, converted to SR with amio bolus per records Prostate cancer + mets to right hip Had XRT 05/20- at [facility] SVT (supraventricular tachycardia) Follows with [facility] cardio Exercise / Class Metabolic Activity II 4-5 Yardwork/Stairs/Walk up hill (one FS: No CP, no SOB) Past Family History Family History Mother , 70yo Heart disease Breast cancer Diabetes Myocardial infarction Father Prostate cancer Colorectal cancer Myocardial infarction Daughter Ovarian cancer Past Surgical History Surgical History History of heart valve replacement (2019) MVR History of postoperative nausea and vomiting History of vasectomy Hx of colonoscopy with polypectomy Hx of prostate biopsy (03/16/24) In-office (Dr. Costa) Status post total hip replacement, right (03/21/20) Right NIKIA (03/21/2020): Grade 1 view, MAC#3, ETT 7.5 at [facility] Past Anesthesia History No Hx of Anesthesia Complications and No Family Hx of Anesthesia Complications History of PONV History of PONV (Nausea (colonoscopy), PONV (Right NIKIA)) Social History Smoking Status: Never smoker Do You Dip or Chew Tobacco: No Hx Alcohol Use: Yes (Occassional;) Alcohol type: wine and hard liquor alcohol intake frequency: holidays/special occasions only Hx Substance Use: No Review of Systems Patient denies chest pain, shortness of breath, dyspnea on exertion, fever, chills, cough, wheezing, palpitations. Physical Exam Vital Signs BP 147/76 P 87 TEMP 97.8 SP02 96%RA RESP 16 Physical Full cervical extension range of motion. Full TMJ range of motion. TMD 3 finger breaths Mallampati Score II Dentition: missing molars Lungs: clear throughout to auscultation Cardiac: regular rate and rhythm, no murmurs noted Spine: normal Carotid arteries: negative bruit Extremities: no LE edema Lab Results Anesthesia Preop Results Results Anesthesia Widget: WBC 5.81 K/ul (4.8-10.8) 07/08/24 Hgb 13.9 g/dl (14.0-18.0) L 07/08/24 Hct 41.4 % (42.0-52.0) L 07/08/24 Plt 131 K/uL (130-400) 07/08/24 PT 10.6 Seconds (9.0-12.0) 07/08/24 PTT 25 Seconds (21-31) 07/08/24 INR 1.0 (0.9-1.1) 07/08/24 Blood Type O Positive 07/08/24 Antibody Screen NEGATIVE 07/08/24 Testing Laboratory Results 07/07/24 SODIUM 137 POTASSIUM 4.9 CHLORIDE 103 CO2 26 BUN 21 CREATININE 1.0 GLUCOSE 86 Electrocardiogram Date: 07/08/24 SB at 52bpm. "Otherwise normal ECG" Echocardiogram Date: 10/28/23 LVEF 60-64%. No LV mural thrombus. Nondilated cardiac chambers. Trace AI. [place] epic bioprosthetic mitral valve is well-seated. Significant mitral valve prosthesis stenosis/regurgitation absent. Moderately enlarged aortic root (3.7 cm). No significant change compared to 10/2021 per report. Other Testing PET CT Skull to mid-thigh Date: 04/02/[address] findings: No acute intracranial hemorrhage observed within visualized portions of the skull base. Sequela of prior splenic infarct with splenic atrophy/scarring. Residual splenic tissue demonstrates typical radiotracer activity. No large pleural or pericardial effusion. Suspected mitral valve pros thesis/augmentation. No significant pericardial effusion. No acute focal consolidation. Patent central airways. No pneumothorax. Liver, gallbladder unremarkable. No hydronephrosis. Bladder is not distended. Metallic streak artifact from right hip prosthesis partially obscures pelvis. There is diverticulosis of the colon. There is no bowel dilatation. There is no abdominal aortic aneurysm. Clips present in the scrotum may reflect sequela of prior vasectomy. Median sternotomy wires are observed and appear intact without evidence of sternal dehiscence. Right metallic hip prosthesis observed. IMPRESSION: Focal radiotracer activity in the prostate consistent with known prostate cancer. Focal activity in a sclerotic right posterior acetabular lesion, likely metastasis.
--- NOTE | 2024-07-08 09:04 | PAT Medication Instructions ---
Medication Instructions Date of Service July 08, 2024 Home Medications Medication Instructions Recorded metoprolol succinate 50 mg 50 mg PO BID #180 tabs 01/15/24 tablet,extended release 24 hr famotidine 20 mg tablet 20 mg PO QAM #90 tabs 02/17/24 finasteride 5 mg tablet 5 mg PO QAM #90 tabs 05/20/24 tramadol 50 mg tablet 50 mg PO Q8H PRN pain #60 tabs 06/21/24 Wheeled Walker #1 ea 06/25/24 walker #1 ea 06/28/24 aspirin 81 mg tablet,delayed release (Aspir-) 81 mg PO QAM metoprolol succinate 50 mg tablet,extended release 24 hr 50 mg PO BID famotidine 20 mg tablet 20 mg PO QAM abiraterone 250 mg tablet 1,000 mg PO QAM clonazepam 0.5 mg tablet (Klonopin) 0.5 mg PO HS PRN Sleep prednisone 5 mg tablet 5 mg PO QAM finasteride 5 mg tablet 5 mg PO QAM tramadol 50 mg tablet 50 mg PO Q8H PRN pain bicalutamide 50 mg tablet 50 mg PO UD leuprolide (3 month) 22.5 mg (3 month) intramuscular syringe kit (Lupron Depot) 0 mg IM Q3M pravastatin 10 mg tablet 10 mg PO QPM tamsulosin 0.4 mg capsule 0.4 mg PO QPM ASK your prescriber and surgeon abiraterone 250 mg tablet 1,000 mg PO QAM bicalutamide 50 mg tablet 50 mg PO UD leuprolide (3 month) 22.5 mg (3 month) intramuscular syringe kit (Lupron Depot) 0 mg IM Q3M aspirin 81 mg tablet,delayed release (Aspir-) 81 mg PO QAM Take morning of surgery With a small sip of water, OTHERWISE NOTHING TO EAT OR DRINK AFTER MIDNIGHT: metoprolol succinate 50 mg tablet,extended release 24 hr 50 mg PO BID famotidine 20 mg tablet 20 mg PO QAM prednisone 5 mg tablet 5 mg PO QAM finasteride 5 mg tablet 5 mg PO QAM tramadol 50 mg tablet 50 mg PO Q8H PRN pain (if needed) Take evening before surgery metoprolol succinate 50 mg tablet,extended release 24 hr 50 mg PO BID clonazepam 0.5 mg tablet (Klonopin) 0.5 mg PO HS PRN Sleep (if needed) tramadol 50 mg tablet 50 mg PO Q8H PRN pain (if needed) pravastatin 10 mg tablet 10 mg PO QPM tamsulosin 0.4 mg capsule 0.4 mg PO QPM Other Notes If you have any questions please call us at [phone] or [phone] or [phone] or [phone]
--- NOTE | 2024-07-24 19:02 | History & Physical Report ---
Date of Service July 24, 2024 Assessment & Plan (1) Degenerative joint disease of left hip: 69-year-old gentleman 4 years out from a right hip replacement with multiple medical comorbidities including history of bacterial endocarditis along with current prostate cancer under treatment. He is got advanced left hip arthritis. He is markedly debilitated by this and like to have his left hip replaced. Plan: Plac[facility] to take him to the operating room and do a left total hip replacement. The risks and benefits this procedure were explained. The patient understands and desires to proceed. He is planned to be discharged to home with some home health and his 's assistance. Will use aspirin for DVT p rophylaxis. (2) Status post total hip replacement, right: (3) HTN (hypertension): (4) Hyperlipidemia: (5) Prostate cancer: (6) History of CVA (cerebrovascular accident): (7) Hx of subarachnoid hemorrhage: (8) History of anemia: History of Present Illness Chief Complaint: . Progressive left hip pain and discomfort. Primary Care Provider: Urbano Chavez DO . The patient is a 69-year-old gentleman well-known to me from a previous right hip replacement done 4 years ago. 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 He had extensive treatment for this and recovered. He had his right hip replaced 4 years ago and is done well from this. Over the past 2 years he developed increased pain discomfort and stiffness in his left hip. He now like present for surgical treatment. The patient has been recently diagnosed with prostate cancer with a small mets to his right acetabulum. Has been radiated. He is on some chemotherapy and doing pretty well. Left hip debilitating and he like to have it checked. He is got groin and thigh pain. Said no recurrent history of infection or sepsis in the past 4 to 5 years. Allergies Allergy/AdvReac Type Severity Reaction Status Date / Time corn Allergy Mild Nausea/vomi Verified 07/08/24 08:57 ting No Known Drug Allergies Allergy Verified 07/08/24 08:57 Home Medications Medication Instructions Recorded Confirmed Type aspirin 81 mg tablet,delayed 81 mg PO QAM 02/23/20 07/08/24 History release (Aspir-) metoprolol succinate 50 mg 50 mg PO BID #180 tabs 01/15/24 07/08/24 Rx tablet,extended release 24 hr famotidine 20 mg tablet 20 mg PO QAM #90 tabs 02/17/24 07/08/24 Rx abiraterone 250 mg tablet 1,000 mg PO QAM 05/04/24 07/08/24 History clonazepam 0.5 mg tablet (Klonopin) 0.5 mg PO HS PRN Sleep 05/04/24 07/08/24 History prednisone 5 mg tablet 5 mg PO QAM 05/04/24 07/08/24 History finasteride 5 mg tablet 5 mg PO QAM #90 tabs 05/20/24 07/08/24 Rx tramadol 50 mg tablet 50 mg PO Q8H PRN pain #60 tabs 06/21/24 07/08/24 Rx Wheeled Walker #1 ea 06/25/24 06/25/24 Rx walker #1 ea 06/28/24 Rx bicalutamide 50 mg tablet 50 mg PO UD 07/08/24 07/08/24 History leuprolide (3 month) 22.5 mg (3 0 mg IM Q3M 07/08/24 07/08/24 History month) intramuscular syringe kit (Lupron Depot) tamsulosin 0.4 mg capsule 0.4 mg PO QPM 07/08/24 07/08/24 History pravastatin 10 mg tablet 10 mg PO QPM #90 tabs 07/20/24 Rx Past Med/Surg History Problem List Degenerative joint disease of left hip GERD without esophagitis Medical History History of anemia Hx of subarachnoid hemorrhage (2019) [facility], no residual issues History of CVA (cerebrovascular accident) (2019) 10/17 septic emboli from endocarditis, with scattered focci No deficits Hx of colonic polyps History of anxiety Previous "white coat" issues resolved per patient Prostate cancer + mets to right hip Had XRT 05/20- at [facility] TERRY on CPAP SVT (supraventricular tachycardia) Follows with [facility] cardio Hyperlipidemia HTN (hypertension) BPH (benign prostatic hyperplasia) Paroxysmal A-fib Post-op after valve replacement, converted to SR with amio bolus per records Mitral valve disease s/p MVR (2019), last echo 10/2023 Enlarged prostate GERD (gastroesophageal reflux disease) Degenerative joint disease of right hip Surgical History History of postoperative nausea and vomiting Hx of colonoscopy with polypectomy Hx of prostate biopsy (03/16/24) In-office (Dr. Costa) Status post total hip replacement, right (03/21/20) Right NIKIA (03/21/2020): Grade 1 view, MAC#3, ETT 7.5 at [facility] History of heart valve replacement (2019) MVR History of vasectomy Family History Mother , 70yo Heart disease Breast cancer Diabetes Myocardial infarction Father Prostate cancer Colorectal cancer Myocardial infarction Daughter Ovarian cancer Social History Smoking Status: Never smoker Second Hand Exposure: No; Do You Dip or Chew Tobacco: No; Tobacco Cessation Education Requested by Patient: No Hx Alcohol Use: Yes Alcohol type: wine and hard liquor Hx Substance Use: No Preferred Language: [place] Communication Ability: Effective Visual Impairment: No Limitations Hearing Ability: Normal Spectroscopist Required: No Beliefs That Will Affect Care: None marital status: Current Living Situation: Spouse current occupational status: employed current occupation: painter How many Children do You have: 1 Other Information That Helps Us Care for You: No Feels Safe at Home: Yes Safety Concerns: Feels Safe At This Time Diet: regular caffeine: No during the past year weight has: remained stable Assistive Devices: CPAP and Glasses Review of Systems All systems reviewed & are unremarkable except as noted in HPI & below. Physical Exam . Physical examination reveals a pleasant healthy appearing male. Examination of the left hip and leg reveals patient ambulates with a markedly antalgic gait. About a half a centimeter shorter on the side compared to the other side. Got a very stiff hip with limited internal rotation. Is got pain with internal rotation. Negative straight leg raise. No knee effusion. He is neurologically intact. Constitutional WD/WN, vitals as above Respiratory normal respiratory effort, lungs clear to auscultation Cardiovascular RRR, no murmur, no edema Gastrointestinal (Abdomen) normal bowel sounds, soft, nontender, no hepatosplenomegaly Results & Data Results & Data Laboratory Results . Laboratory results reveal a normal white cell count. His sed rate is 9 and CRP is less than 0.50. Diagnostic Findings . X-rays of the left hip were reviewed. Shows advanced left hip arthritis. Got complete loss of his superior joint space. Flattening of the femoral head. Got subchondral sclerosis. His right hip replacement looks in good position and healed in nicely. No signs of problems. PG Care Time/CCT Total # of Minutes Spent Total Time Spent with Patient: Total time spent is greater than 50% in coordination of care (as documented) at patient's floor/unit and/or counseling patient: Coding Level of Care Code None Diagnoses Degenerative joint disease of left hip M16.12 Status post total hip replacement, right Z96.641 HTN (hypertension) I10 Hyperlipidemia E78.5 Prostate cancer C61 History of CVA (cerebrovascular accident) Z86.73 Hx of subarachnoid hemorrhage Z86.79 History of anemia Z86.2
[~2024-07-30 06:25] MED LIST: BUPIVACAINE 0.5 % 5 MG/1 ML PF 10ML VIAL ONE
--- NOTE | 2024-07-30 06:39 | History & Physical Bridge Note ---
Date of Service July 30, 2024 History & Physical Bridge Note I have examined the patient, reviewed the History & Physical and in the interval since the performance of the History & Physical I have noted the following changes of clinical significance: no changes noted
[2024-07-30] MEDS: LR 500ML BOLUS, THEN 15ML/HR IV SCH (07:05)
[2024-07-30] MEDS: LR 60ML/HR IV SCH (07:15)
[2024-07-30] MEDS: FAMOTIDINE 20 MG TAB PO SCH (07:15)
[2024-07-30] MEDS: CeleBREX 200 MG CAP PO SCH (07:19)
[2024-07-30] MEDS: METOCLOPRAMIDE HCL 10 MG TABLET PO SCH (07:19)
[2024-07-30] MEDS: ACETAMINOPHEN 500 MG TAB PO SCH ×2 (07:19→14:42)
[2024-07-30] MEDS ORDERED: MIDAZOLAM HCL 1 MG/ML 2ML VIAL ONE ×2 (07:59→08:30)
[2024-07-30] MEDS ORDERED: fentaNYL citrate PF 100 MCG/2 ML VIAL ONE (08:00)
[2024-07-30] MEDS ORDERED: LIDOCAINE 2% 2 ML VIAL/AMP(20MG/ML) INFIL ONE (08:00)
[2024-07-30] MEDS ORDERED: PROPOFOL IV EMULSION 10 MG/ML 20 ML VIAL IV ONE (08:00)
[2024-07-30] MEDS ORDERED: MoRPHine SULFATE PF 1 MG/ML 10 ML AMP/VIAL ONE (08:11)
[2024-07-30] MEDS ORDERED: PROMETHAZINE HCL 6.25 MG in SODIUM CHLORIDE 0.9% 50 ML IV PRN (08:22)
[2024-07-30] MEDS ORDERED: ONDANSETRON INJ 2 MG/ML 2 ML VIAL IV PRN (08:22)
[2024-07-30] MEDS ORDERED: ATROPINE SULFATE 0.1 MG/ML 10ML SYR IV PRN (08:22)
[2024-07-30] MEDS ORDERED: fentaNYL citrate PF 100 MCG/2 ML VIAL IV PRN (08:22)
[2024-07-30] MEDS ORDERED: ePHEDrine sulfate 50 MG/ML AMP IV PRN (08:22)
[2024-07-30] MEDS ORDERED: HYDROmorphone INJ 1 MG/ML SYRINGE IV PRN (08:22)
[2024-07-30] MEDS: TRANEXAMIC ACID 1,000 MG **IV Pre-op IV SCH (08:40)
[2024-07-30] MEDS: ceFAZolin 2000MG 2,000 MG/15 ML SYR IV SCH ×2 (08:48→17:31)
[2024-07-30] MEDS ORDERED: VASOPRESSIN 20 UNIT/ML VIAL ONE ×2 (09:08→09:13)
[2024-07-30] MEDS ORDERED: ALBUMIN HUMAN 5% 12.5 GM/250 ML VIAL IV ONE (09:08)
[2024-07-30] MEDS ORDERED: ePHEDrine sulfate 50 MG/5 ML SYR ONE (09:16)
[2024-07-30] MEDS ORDERED: PHENYLEPHRINE 100MCG/ML 5ML SYR ONE (09:17)
[2024-07-30] MEDS ORDERED: ePHEDrine sulfate 50 MG/ML AMP ONE (09:17)
[2024-07-30] MEDS ORDERED: ONDANSETRON INJ 2 MG/ML 2 ML VIAL ONE (09:18)
[2024-07-30] MEDS: BUPIVACAINE/EPINEPHRINE 0.5% MPF 1:200,000 30 ML VIAL ONE (09:30)
--- NOTE | 2024-07-30 10:28 | Operative Report ---
PG Post Operative Report Pre & Post Diagnosis Operation Date: 07/30/24 08:50 Pre-Op Diagnosis: Degenerative joint disease of left hip Post-Op Diagnosis: Degenerative joint disease of left hip I identified the patient and participated in the time-out.: Yes Procedure Operation Date: 07/30/24 08:50 Actual Procedures p Left Total Hip Arthroplasty - Zheng Rice MD Surgeon Zheng Rice MD Marine Firefighter Rusty Ramirez PA-C Estimated Blood Loss 100 Findings Consistent with Post-Op Diagnosis Specimens Left femoral head sent for pathology. Anesthesia Type Spinal MAC Complications none Disposition Accompanied Patient To Recovery: No Indications Patient is a 69-year-old gentleman who was 4 years out from a right hip replacement. Over the past several years he has developed increased pain discomfort in his left hip. X-rays show a marked progression of hip arthritis in the left hip with advanced disease. He failed conservative measures. He elected proceed with surgical treatment. Description of Procedure Operative implants consist of: 1. Biomet G7 size 56 mm acetabular shell. 2. 6.5 cancellous acetabular screws 1 of 35 mm length and 1 of 30 mm length. 3. [place] hole manager department. 4. Highly cross-linked polyethylene liner with a 56 mm outer diameter, 36 mm inner diameter with a crawford placed inferior and posterior. 5. DePuy Corail I size 15 KLA femoral stem. 6. +12/36 mm ceramic articular ball. The patient was taken to the operating, identified, placed on the operating table in the supine position. All contact areas were appropriately padded. IV antibiotics fibra anesthesia team. A spinal anesthetic had been implemented holding area. The patient is then placed in the right lateral decubitus position. An axillary roll was placed. Distal Birkett position was used for positioning. Left hip and leg were then prepped and draped in usual sterile fashion. A posterolateral approach to the left hip was then performed to a curvilinear incision centered over the greater trochanter. Sharp dissection was got through subcutaneous tissue down below the IT band gluteal fascia. The IT band gluteal fascia incised longitudinally in line with skin incision. The underlying greater bursa was excised. The piriformis and external rotators along with the posterior hip joint capsule then released from the posterior aspect the hip as a single layer. The hip was internally rotated and dislocated. A femoral neck osteotomy cut was made with Final Cut about 10 mm above the lesser trochanter. Femoral head was removed. Should for pathology. The femur was retracted anteriorly. Attention drawn the acetabulum. The acetabular labrum was excised. The pulmonary fat was excised. Sequential reaming the acetabular was then performed again with a size 47 progressing up to 55. Reamed a little bit with a 56 reamer and then placed a 56 mm Biomet G7 acetabular shell in about 40 degrees lateral opening and 20 degrees of anteversion. It was fixed with two 6.5 screws. A trial liner was placed. Attention drawn the femur. The proximal femur was entered with a cookie cutter followed by canal finder. I broached beginning with size 8 and progressing up to a 15. Got excellent fitted to 15. We trialed the hip and with the +5 articular ball soft tissue tension was once again quite lax similar to the other side. Therefore we elected to place a +12 head which provided more appropriate soft tissue tension and much better stability. We did elect to place a crawford inferior and posterior to maximize the stability in flexion. His leg lengths seemed equal. We elected to place these implants. All trial implants were removed. An apex hole manager department was placed. Highly cross-linked polyethylene liner was placed. The crawford of the liner was placed inferior and posterior. A size 15 KLA femoral stem was impacted in position. A +12/36 mm ceramic articular ball was placed. Hip was located and once again found to be stable. Attention drawn toward closing. The wound was irrigated coconuts pulsatile lavage solution. We did inject locally with 60 cc of half percent Marcaine with epinephrine. Posterior capsule and external rotators then repaired through drill holes in the posterior trochanter with #2 Tycron suture. The IT band gluteal fascia was then closed with #1 PDS suture running fashion. Subcutaneous tissue was then closed with 2 layers with a deep layer #1 Vicryl suture and subcutaneous tissues with 2-0 Dexon suture in a buried interrupted fashion. Skin was closed with skin zuleima. Leg was then cleaned and dried a sterile dressing with Xeroform, 4 fours, ABD pad and foam tape was applied. Patient then transferred to the recovery room in stable condition. Patient tolerated procedure well and there were no complications. Rusty Ramirez, my physician biology laboratory assistant, was present for the entire procedure. His assistance was essential and required for appropriate patient positioning, prepping and draping, surgical exposure, performing the technical details of the operation, placement the implants, closure of the wound, and placement of the sterile bandage. I attest to the content of the Intraoperative Record and any orders documented therein. Any exceptions are noted below.
--- NOTE | 2024-07-30 11:12 | XRay Report ---
XR hip 1V LT w pelvis CLINICAL HISTORY: Postoperative evaluation. COMPARISON: Left hip radiographs June 25, 2024. FINDINGS: Alignment of the total left hip arthroplasty is anatomic. There is no periprosthetic fract ure or unexpected radiopaque foreign body. There are skin zuleima and acetabular screws. Right hip ar throplasty is intact. IMPRESSION: Expected findings following total left hip arthroplasty. ACT 112: Negative or not required by law. Electronically signed by: Randy Wilson M.D. 07/30/2024 11:10 AM
[2024-07-30] MEDS ORDERED: bisacodyL 10 MG SUPP PR PRN (12:08)
[2024-07-30] MEDS ORDERED: LEUPROLIDE 22.5 MG IM SCH (12:08)
[2024-07-30] MEDS ORDERED: ALUMINUM/MAGNESIUM SUSP 30 ML UDC PO PRN (12:08)
[2024-07-30] MEDS ORDERED: HYDROmorphone INJ 0.5 MG/0.5 ML SYR IV PRN (12:08)
[2024-07-30] MEDS ORDERED: NALOXONE HCL 0.4 MG/1 ML VIAL/CARP IV PRN (12:08)
[2024-07-30] MEDS ORDERED: MAGNESIUM HYDROXIDE SUSP 30 ML UDC PO PRN (12:08)
[2024-07-30] MEDS ORDERED: traMADol HCL 50 MG TABLET PO PRN (12:08)
[2024-07-30] MEDS ORDERED: clonazePAM 0.5 MG TAB PO PRN (12:08)
[2024-07-30] MEDS ORDERED: METOCLOPRAMIDE HCL INJ 5 MG/ML 2 ML VIAL IV PRN (12:08)
--- NOTE | 2024-07-30 13:57 | Anesthesiology Progress Note ---
Date of Service July 30, 2024 Anesthesia Post Procedure Vital Signs Vital Signs: Temp Pulse Resp BP Pulse Ox O2 Del Method O2 Flow Rate 07/30/24 12:50 71 20 104/65 95 Room Air 07/30/24 12:20 68 16 95/58 L 95 Room Air 07/30/24 11:50 75 18 101/62 97 Room Air 07/30/24 11:35 72 16 95/58 L 97 Room Air 07/30/24 11:20 75 15 95/60 L 97 Room Air 07/30/24 11:05 74 13 99/61 L 94 Room Air 07/30/24 10:50 36.4 C L 74 15 97/64 L 95 Room Air 07/30/24 10:40 73 16 101/64 92 Room Air 07/30/24 10:30 76 19 108/67 96 Oxymask 4 07/30/24 10:20 70 20 105/59 L 96 Oxymask 4 07/30/24 10:11 36.1 C L 75 16 105/62 96 Oxymask 4 07/30/24 06:46 36.5 C 62 18 148/88 H 99 Room Air Pain Intensity Left Hip: Pain Intensity: 5 Transfer of Care Handoff Completed per policy Notes Mental Status: alert / awake / arousable and participated in evaluation Nausea / Vomiting: adequately controlled Pain: adequately controlled Airway Patency, RR, SpO2: stable & adequate BP & HR: stable & adequate Hydration State: stable & adequate Neuraxial Anesthesia: was administered Anesthetic Complications: no major complications apparent and Pt Satisfied with anesthetic care
[2024-07-30] MEDS ORDERED: ACETAMINOPHEN 500 MG TAB PO SCH (14:00)
[2024-07-30] MEDS: KETOROLAC TROMETHAMINE 15 MG/ML VIAL IV SCH (14:05)
--- OUTSIDE RECORDS SUMMARY | 2024-07-30 15:34 | External Medical Summary | Summary of Care ---
Author Name Unknown Organization [facility] Address [address] [place] [address] Phone [phone] Care Team Providers Care Crm Consultant Name Role Phone Urbano Chavez DO Primary Care Provider Encounter Details Date Type Department Care Team (Late st Contact Info) Description 07/22/2024 Telephone Hematology/Oncology [facility] [address] [place] [address] Chicho uLjan MD [address] [facility] [place] [address] Allergies No known active allergiesdocumented as of this encounter (statuses as of 07/22/2024) Medications Medication Sig Dispensed Refills Start Date End Date Status finasteride (PROSCAR) 5 MG TabletIndications:Marin ign non-nodular prostatic hyperplasia without lower urinary tract symptoms Take 1 Tab by mouth daily. 30 Tab 11 11/05/2017 Active metoprolol succinate XL (TOPROL XL) 50 MG [id number]:Tachy cardia,Paroxysmal atrial fibrillation (HCC) Take 1 Tab by mouth 2 times a day. 60 Tab 3 12/03/2019 Active aspirin 81 MG Tablet Take 1 Tablet by mouth in the morning. 02/04/2020 Active famotidine (PEPCID) 20 MG Tablet Take 1 Tablet by mouth in the morning. 01/26/2020 Active Pravastatin Sodium 10 MG Oral Tablet (Pravachol) Take 1 Tablet by mouth every evening. Active clonazePAM 0.5 MG Oral Tablet (KlonoPIN) Take 1 Tablet by mouth 2 times a day as needed for Anxiety. Active predniSONE 5 MG Oral Tablet (Deltasone)Indication s:Prostate cancer (HCC) Take 1 Tablet by mouth in the morning. 30 Tablet 5 04/19/2024 Active Abiraterone Acetate 250 MG Oral Tablet (Zytiga)Indications:P rostate cancer (HCC) Take 4 Tablets by mouth in the morning. 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 MSSA bacteremia 11/04/2019 Meningitis 11/03/2019 Hyperlipidemia with target LDL less than 160 BPH without obstruction/lower urinary tract symp toms 04/12/2015 SVT (supraventricular tachycardia) 04/12/2015 Benign neoplasm of colon Overview: adenomatous polyp, recall 4 yrs Acute bacterial endocarditis documented as of this encounter (statuses as of 07/22/2024) Resolved Problems Problem Noted Date Diagnosed Date Resolved Date Hyperlipidemia 04/12/2015 11/04/2016 HTN, white coat 07/28/2014 11/05/2017 Palpitations 07/28/2014 11/04/2016 documented as of this encounter (statuses as of 07/22/2024) Immunizations Name Administration Dates Next Due COVID-19 mRNA, LNP-s, No Pre serve, 2-Dose Series (Moderna) 11/12/2020,10/17/2020 COVID-19, mRNA, LNP-s, PF, B ooster, 100mcg/0.5mg (Moderna) 07/21/2021 PPD 05/26/2012 Seasonal Influenza Vac., MDV , IM, 0.5 mL (Fluzone) 05/31/2021,07/28/2014,06/29/2013, 012,07/31/2011 Seasonal Influenza, PF, 6 M & above, IM , (FluLaval or Fluzone) 06/16/2017,07/28/2014,06/29/2013, 012,07/31/2011 Seasonal Influenza, Quadriva lent, No Preserve, IM 10/04/2015 TDAP (age 10 and older)(Boostrix) 05/26/2012 documented as of this encounter Social History Tobacco Use Types Packs/Day Years Used Date Smoking Tobacco: Never Smokeless Tobacco: Never Alcohol Use Standard Drinks/Week Comments Yes 0 (1 standard drink = 0.6 oz pur e alcohol) occasional PHQ-2 Answer Date Recorded PHQ-2 Score 0 07/19/2018 Sex and Gender Information Value Date Recorded Sex Assigned at Not on file Gender Identity Not on file Sexual Orientation Not on file Job Start Date Occupation Industry Not on file Not on file Not on file documented as of this encounter Functional Status Functional Status Response Date of Assess ment Are you deaf or do you have serious difficulty h earing? No 11/03/2019 Are you blind or do you have serious difficulty seeing, even when wearing glasses? No 11/05/2019 Do you have serious difficul ty walking or climbing stairs? (5 years old or older) No 11/05/2019 Do you have difficulty dress ing or bathing? (5 years old or older) No 11/05/2019 Because of a physical, menta l, or emotional condition, do you have difficulty doing errands alone such as visiting a doctor s office or shopping? (15 years old or older) No 11/05/19 20 Cognitive Status Response Date of Assessm ent Because of a physical, menta l, or emotional condition, do you have serious difficulty concentrating, remembering, or making decisions? (5 years old or older) No 11/05/2019 documented as of this encounter Miscellaneous Notes * Telephone Encounter - Alicia Delgado RPh - 07/22/2024 10:37 AM EST Returned call and spoke with pt. Please see 07/22 MTM encounter * Telephone Encounter - Mary Espinal, body artist - 07/22/2024 10:17 AM EST MEDICATION THERAPY MANAGEMENT ABIRATERONE TREATMENT STATUS NOTE Ancelmo Gonzalez Noss [id number] Patient Phone Numbers Communication: Spoke to Caller Treatment: Medication: Abiraterone (Zytiga) Indication/Staging/Diagnosis Code: MCRPC / C61 Dose: 1000mg daily Administration: empty stomach (1 hour before or 2 hours after a meal) Start Date: 04/28/24 Primary President [employer]/Oncologist: Dr Ahsan Lujan Caller: Patient Incoming Request: Patient has questions regarding oral chemotherapy Action: Sent telephone encounter to pharmacist for follow-up Additional Notes: Mary Espinal body artist Ekg Monitor Hematology Oncology Oral Chemotherapy Clinic Medication Therapy Disease Management [facility] 07/22/24,10:23 AM Time Spent on Encounter: < 5 minutes documented in this encounter Plan of Treatment Upcoming Encounters Date Type Department Care Team (Late st Contact Info) Description 07/28/2024 3:00 PM EST Office Visit Hematology/Oncology [facility] [address] [place] [address] Stella Bess, ABDIFATAH [address] [place] [address] 07/28/2024 3:15 PM EST Immunization/Inject ion Hematology/Oncology Treatment, [place] [address] [place] [address] 08/25/2024 9:30 AM EST Pharmacy Pharmacy Hematology Oncology [facility] [address] [place] [address] [facility] [place] Hem/Onc [address] [place] [address] Scheduled Procedures Name Priority Associated Diagnoses Date/Ti me COLONOSCOPY FLEXIBLE PROXIMA L DIAGNOSTIC Recall History of colonic polyps Health Maintenance Due Date Last Done Comments Pneumococcal Vaccine: 65+ Years (1 of 2 - PCV) 1962 Zoster Vaccines (1 of 2) 1975 Cologuard 2001 Fecal Occult Blood Test 2001 Sigmoidoscopy 2001 Depression Screening 11/05/2018 11/05/2017 DTap/Tdap Vaccines (2 - Td or Tdap) 05/26/2022 05/26/2012 COVID-19 Vaccine (4 - season) 2024 07/21/2021, 11/12/2020, 10/17/2020 Influenza Vaccine (FLU shot) (#1) 2024 05/31/2021, 08/01/2020, 06/16/2017, Additional history exists Diabetes Screening 07/21/2027 07/21/2024, 1 , 06/23/2024, Additional history exists Colonoscopy 01/29/2028 01/28/2023, 01/13, 07/02/2016, Additional history exists Colorectal Cancer Screening 01/29/2028 RETIRED - COLONOSCOPY-EVERY 5 YRS AGES 18-100 Discontinued 01/28/2023, 01/28/2023, 07/02/2016, Additional history exists HPV (Gardasil) Vaccine Aged Out No lo nger eligible based on patient's age to complete this topic Hepatitis B Vaccine Aged Out No longe r eligible based on patient's age to complete this topic MENINGOCOCCAL (MENACTRA/MENVEO) Aged Out No longer eligible based on patient's age to complete this topic documented as of this encounter Medical Devices Implanted Type Area Buffing Turner And Counter Device Identifier Shelf Expiration Date Model / Serial / Lot Suture Steel 6 B&S19 M654g - [id number] Implanted:Qty : 7 on 11/11/2019 by Ceferino Larson MD at [place] [facility] [place] Sternum JNJ : [employer] 07/15/2024 M654G / / [id number] Valve Heart Mitral Epic 33mm - [id number] - [id number] Implanted:Qty : 1 on 11/11/2019 by Ceferino Larson MD at [place] [facility] [place] N/A: Heart ST AR[place] : CARDIOVASCULAR [id number] 06/22/2023 [id number] 00 / [id number] / [id number] documented as of this encounter Visit Diagnoses Diagnosis Prostate cancer (HCC)- Primary Malignant neoplasm of prostate documented in this encounter Advance Directives * Full Code (Latest Code Status on File) Date Activated Date Inactivated Comments 11/11/2019 3:25 PM 11/18/2019 4:43 PM This order re flects the patients wishes and were consensually agreed upon. * Full Code Date Activated Date Inactivated Comments 11/05/2019 3:31 AM 11/11/2019 3:25 PM This order r eflects the patients wishes and were consensually agreed upon. Question Answer Comments Discussion of Advance Directives occurred with: Patient * Full Code Date Activated Date Inactivated Comments 11/03/2019 8:43 PM 11/05/2019 2:58 AM This order r eflects the patients wishes and were consensually agreed upon. Care Teams Crm Consultant Relationship Specialty Start Date End Date Urbano Chavez DO [address] [facility] [place] [address] PCP - General Family Medicine 12/10/18 documented as of this encounter
--- OUTSIDE RECORDS SUMMARY | 2024-07-30 15:34 | External Medical Summary | Summary of Care ---
Author Name Unknown Organization [facility] Address [address] [place] [address] Phone [phone] Care Team Providers Care Railroad Worker Name Role Phone Urbano Chavez DO Primary Care Provider [phone] Reason for Visit * Reason Comments Medication Management Encounter Details Date Type Department Care Team (Late st Contact Info) Description 07/08/2024 9:30 AM EDT Pharmacy Pharmacy Hematology Oncology [facility] [address] [place] [address] [facility] [place] Hem/Onc [address] [place], [place] [id number] Prostate cancer (HCC)* Allergies No known active allergiesdocumented as of this encounter (statuses as of 07/08/2024) Medications Medication Sig Dispensed Refills Start Date End Date Status finasteride (PROSCAR) 5 MG TabletIndications:Marin ign non-nodular prostatic hyperplasia without lower urinary tract symptoms Take 1 Tab by mouth daily. 30 Tab 11 11/05/2017 Active metoprolol succinate XL (TOPROL XL) 50 MG [id number]:Tachy cardia,Paroxysmal atrial fibrillation (HCC) Take 1 Tab [...] as of this encounter (statuses as of 07/08/2024) Active Problems Problem Noted Date Diagnosed Date [...] as of this encounter (statuses as of 07/08/2024) Resolved Problems Problem Noted Date Diagnosed Date Resolved Date Hyperlipidemia 04/12/2015 11/04/2016 HTN, white coat 07/28/2014 11/05/2017 Palpitations 07/28/2014 11/04/2016 documented as of this encounter (statuses as of 07/08/2024) Immunizations Name Administration Dates Next Due COVID-19 [...] No 11/05/2019 documented as of this encounter Progress Notes * Alicia Delgado, formerly [facility] - 07/08/2024 10:43 AM EDT MEDICATION THERAPY MANAGEMENT ABIRATERONE TREATMENT PROGRESS NOTE Ancelmo Vazquez" Noss [phone] Patient Phone Numbers Preferred Lab: [facility] Specialty Pharmacy: [facility] Communication: Left message requesting return call to assess toleration to therapy Treatment: Medication: Abiraterone (Zytiga) Indication/Staging/Diagnosis Code: MCRPC / C61 Dose: 1000mg daily Administration: empty stomach (1 hour before or 2 hours after a meal) Start Date: 04/28/24 Primary Mattress Renovator/Oncologist: Dr Ahsan Lujan Additional Therapy: Prednisone 5mg daily Supportive Care Meds: Leuprolide Prophylactic Meds: See antihypertensive Relevant Chronic Medications: Category Medications Pertinent Notes Antihypertensives Metoprolol XL 50mg BID Per cardiology Anticoagulation ASA 81mg daily Per cardiology Treatment History: None Interval History: N/A Changes to medication list since last visit? No Assessment and Plan: ALT increasing to 1.7 times ULN AST slightly above ULN Per PI, no dose adjustment recommended for LFTs < 5 times ULN Advised pt to limit APAP and alcohol use Will monitor closely BUN elevated but declining Encouraged to increase fluid intake Will monitor closely All other labs stable Continue current therapy Repeat labs with OV Assessment of compliance: N/A Assessment of adverse effects attributed to drug therapy: N/A Dose adjustment needed based on lab or adverse drug reaction? No Follow up: 3 weeks OV/labs; 5 weeks MTM Alicia Delgado, PharmD, BCOP Clinical Pharmacist, [facility] Oral Chemotherapy [facility] 07/08/2024, 10:50 AM Monitoring Parameters: Estimated CrCl Serum creatinine: 1 mg/dL 07/07/24 1522 Estimated creatinine clearance: 80.2 mL/min Hepatitis panel Latest Reference Range & Units 04/21/24 09:21 Hepatitis B Surface Antigen Negative Negative Hepatitis B Surface Antibody, Quantitative mIU/mL <3.5 HEPATITIS B SURFACE ANTIBODY Rpt Hepatitis B Surface Antibody, Interpretation NOT immune to Hepatitis B Virus Hepatitis B Surface Antibody, Qualitative Negative Hepatitis B Core Antibodies IgG and IgM Negative Negative Suggested lab monitoring Suggested lab monitoring: LFTs baseline, every 2 weeks x 3 months, then every month (patients with moderate hep impairment: every 1 week x 1 month, every two weeks x 2 months, then every month), BMP baseline and monthly; BP baseline and monthly BP Readings from Last 3 Encounters: 04/21/24 149/88 04/15/24 132/84 11/06/23 118/76 Treatment Parameters Per PI Pertinent labs: Latest Reference Range & Units 06/09/24 10:24 06/23/24 16:19 07/07/24 15:22 Albumin 3.8 - 5.0 g/dL 4.2 4.1 4.1 AST 10 - 50 U/L 49 40 51 (H) ALT 10 - 50 U/L 97 (H) 63 (H) 84 (H) Alkaline Phosphatase 35 - 130 U/L 89 86 80 Bilirubin, Total <=1.2 mg/dL 0.6 0.5 0.5 Latest Reference Range & Units 06/09/24 10:24 06/23/24 16:19 07/07/24 15:22 BUN 6 - 20 mg/dL 25 (H) 29 (H) 21 (H) CREATININE 0.6 - 1.2 mg/dL 1.1 1.1 1.0 EGFR >=60 mL/min 76 77 82 Time Spent on Encounter: 6 - 10 minutes Encounter Group: Oncology Encounter Interventions Item Category: Oral Chemotherapy Abiraterone Problem/Rationale: Safety: Needs additional monitoring - Medication Requires monitoring Pharmacist Intervention(s): Lab monitoring and Non-pharmacological intervention provided Magnitude of Intervention: Monitoring with direction (Level 1) documented in this encounter Plan of Treatment Upcoming Encounters Date Type Department Care Team (Late st Contact Info) Description 07/28/2024 2:45 PM EST Office Visit Hematology/Oncology [address] [place] [id number] Chicho Lujan MD [address] [place] [address] [place] [address] 07/28/2024 3:15 PM EST Immunization/Inject ion Hematology/Oncology Treatment, [place] [address] [place] [address] 08/13/2024 9:30 AM EST Pharmacy Pharmacy Hematology Oncology [facility] [address] [place] [address] [facility] [place] Hem/Onc [address] [place] [address] Scheduled Procedures Name Priority Associated Diagnoses Date/Ti [...] Td or Tdap) 05/26/2022 05/26/2012 COVID-19 Vaccine ( - season) 2024 07/21/2021, 11/12/2020, 10/17/2020 Influenza Vaccine (FLU shot) (#1) 2024 05/31/2021, 08/01/2020, 06/16/2017, Additional history exists Diabetes Screening 07/07/2027 07/07/2024, 1 , 06/09/2024, Additional history exists Colonoscopy 01/29/2028 01/28/2023, 01/13, [...] this encounter Medical Devices Implanted Type Area Baggage Handler Device Identifier Shelf Expiration Date Model / Serial / Lot Suture Steel 6 B&S19 M654g - [id number] Implanted:Qty : 7 on 11/11/2019 by Ceferino Larson MD at OR [facility] [place] Sternum JNJ : [employer] 07/15/2024 M654G / / [id number] Valve Heart Mitral Epic 33mm - [id number] - [id number] Implanted:Qty : 1 on 11/11/2019 by Ceferino Larson MD at OR [facility] [place] N/A: Heart ST [employer] : CARDIOVASCULAR [id number] 06/22/2023 [id number]- 00 / [id number] / [id number] documented as of this encounter Visit Diagnoses [...] and were consensually agreed upon. Care Teams Railroad Worker Relationship Specialty Start Date End Date Urbano Chavez DO [address] [facility] [place] [address] PCP - General Family Medicine 12/10/18 documented as of this encounter
--- OUTSIDE RECORDS SUMMARY | 2024-07-30 15:34 | External Medical Summary ---
Author Name Unknown Address Unknown Organization K01:[facility] - [address] [place] [address] Laboratory Report Ordering Provider Test Date Status ANABEL STANLEY 07/28/2024 15:44:17 Final Observation Date Value Abnormality Reference (Units ) Status PSA 07/28/2024 15:44:17 0.04 <4.10 (ng/ mL) Final Performing Location [facility] - [address] [place] [address]
--- OUTSIDE RECORDS SUMMARY | 2024-07-30 15:34 | External Medical Summary | Summary of Care ---
Author Name Unknown Organization [facility] Address [address] [place] [address] Phone [phone] Care Team Providers Care Film Painter Name Role Phone Urbano Chavez DO Primary Care Provider [phone] Reason for Visit * Reason Comments Medication Administration Lupron 22.5mg * Episode Based Medications (Routine) - Authorized Specialty Diagnoses / Procedures Referred By Contpat t Referred To Contact Diagnoses Metastasis to bone (HCC) Prostate cancer (HCC) Procedures FL LEUPROLIDE ACETATE SUSPNSION Chicho Lujan MD [address] [place] [address], [place] [address] Phone: tel: fax: Hematology/Oncology Treatment, [address] [address] Phone: tel: fax: Referral ID Status Reason Start Date Expiration Date V isits Requested Visits Authorized [id number] Authorized 04/19/2024 09/14/2099 [id number] Encounter Details Date Type Department Care Team (Late st Contact Info) Description 07/28/2024 3:15 PM EST Immunization/I njection Hematology/Oncology Treatment, [address] [address] Metastasis to bone (HCC)*; Prostate cancer (HCC) Allergies No known active allergiesdocumented as of this encounter (statuses as of 07/28/2024) Medications finasteride (PROSCAR) 5 MG TabletIndications :Benign non-nodular prostatic hyperplasia without lower urinary tract symptoms Take 1 Tab by mouth daily. 30 Tab 11 8 Active metoprolol succinate XL (TOPROL XL) 50 MG [id number]:T achycardia,Paroxy smal atrial fibrillation (HCC) Take 1 Tab by mouth 2 times a day. 60 Tab 3 0 Active aspirin 81 MG Tablet Take 1 Tablet by mouth in the morning. 0 Active famotidine (PEPCID) 20 MG Tablet Take 1 Tablet by mouth in the morning. 0 Active Pravastatin Sodium 10 MG Oral Tablet (Pravachol) Take 1 Tablet by mouth every evening. Active clonazePAM 0.5 MG Oral Tablet (KlonoPIN) Take 1 Tablet by mouth 2 times a day as needed for Anxiety. Active predniSONE 5 MG Oral Tablet (Deltasone)Indica tions:Prostate cancer (HCC) Take 1 Tablet by mouth in the morning. 30 Tablet 5 4 Active Abiraterone Acetate 250 MG Oral Tablet (Zytiga)Indicatio ns:Prostate cancer (HCC) Take 4 Tablets by mouth in the morning. 120 Tablet 5 4 Active documented as of this encounter (statuses as of 07/28/2024) Active Problems Problem Noted Date Diagnosed Date Metastasis to bone 04/19/2024 Prostate cancer 04/16/2024 S/P MVR (mitral valve replacement) 11/11/2019 Cerebral septic emboli 11/05/2019 MSSA bacteremia 11/04/2019 Meningitis 11/03/2019 Hyperlipidemia with target LDL less than 160 BPH without obstruction/lower urinary tract symp toms 04/12/2015 SVT (supraventricular tachycardia) 04/12/2015 Benign neoplasm of colon Overview (06/02/2012): adenomatous polyp, recall 4 yrs Acute bacterial endocarditis documented as of this encounter (statuses as of 07/28/2024) Resolved Problems Problem Noted Date Diagnosed Date Resolved Date Hyperlipidemia 04/12/2015 11/04/2016 HTN, white coat 07/28/2014 11/05/2017 Palpitations 07/28/2014 11/04/2016 documented as of this encounter (statuses as of 07/28/2024) Immunizations Name Administration Dates Next Due COVID-19 [...] Recorded Sex Assigned at Not on file Legal Sex Male 6:00 AM EST Gender Identity Not on file Sexual Orientation Not on file documented as of this encounter Functional Status * Are you deaf or do you have serious difficulty hearing? Answer Date of Assessment Author No 11/03/2019 10:33 PM EST Courtney Kaur RN * Are you blind or do you have serious difficulty seeing, even when wearing glasses? Answer Date of Assessment Author No 11/05/2019 4:10 AM EST Keny Ta RN * Do you have serious difficulty walking or climbing stairs? (5 years old or older) Answer Date of Assessment Author No 11/05/2019 4:00 PM EST Desean Coker RN * Do you have difficulty dressing or bathing? (5 years old or older) Answer Date of Assessment Author No 11/05/2019 4:10 AM EST Keny Ta RN * Because of a physical, mental, or emotional condition, do you have difficulty doing errands alone such as visiting a doctors office or shopping? (15 years old or older) Answer Date of Assessment Author No 11/05/2019 4:10 AM Keny Chino RN documented as of this encounter Mental Status * Because of a physical, mental, or emotional condition, do you have serious difficulty concentrating, remembering, or making decisions? (5 years old or older) Answer Entry Date Author No 11/05/2019 4:10 AM Keny Chino RN documented in this encounter Nursing Notes * Tana Aguirre LPN - 07/28/2024 3:03 PM EST Pt arrived for Lupron 22.5mg injection. Administered in Right dorsogluteal. Pt tolerated well. Pt to see RN ICU today- see notes. Pt to return in 3 months. Discharged in stable condition. documented in this encounter Plan of Treatment Upcoming Encounters Date Type Department Care Team (Late st Contact Info) Description 08/25/2024 9:30 AM EST Pharmacy Pharmacy Hematology Oncology [facility] [address] [place] [address] [facility] [place], [facility] Hem/Onc [address] [place] [address] 10/20/2024 3:15 PM EST Immunization/Inject ion Hematology/Oncology Treatment, [place] [address] [place] [address] Scheduled Procedures Name Priority Associated Diagnoses Date/Ti [...] Tdap) 05/26/2022 05/26/2012 COVID-19 Vaccine (4 - 2024-25 season) 2024 07/21/2021, 11/12/2020, 10/17/2020 Influenza Vaccine [...] this encounter Medical Devices Implanted Type Area Upholstery Repairer Device Identifier Shelf Expiration Date Model / Serial / Lot Suture Steel 6 B&S19 M654g - [id number] Implanted:Qty : 7 on 11/11/2019 by Ceferino Larson MD at OR [facility] [place] Sternum JNJ : [employer] 07/15/2024 M654G / / [id number] Valve Heart Mitral Epic 33mm - [id number] - [id number] Implanted:Qty : 1 on 11/11/2019 by Ceferino Larson MD at OR [facility] [place] N/A: Heart [employer] : CARDIOVASCULAR [id number] 06/22/2023 [id number]- 00 / [id number] / [id number] documented as of this encounter Visit Diagnoses Diagnosis Metastasis to bone (HCC)- Primary Secondary malignant neoplasm of bone and bone marrow Prostate cancer (HCC) Malignant neoplasm of prostate documented in this encounter Administered Medications Inactive Administered Medications - up to 3 most recent administrations Medication Order MAR Action Action Date Dose Rate Site Leuprolide Acetate (3 Month) (Lupron) inj 22.5 mg 22.5 mg, Intramuscular, ONCE, On Fri07/28/24 at 1545, For 1 doseIndications:Metasta sis to bone (HCC),Prostate cancer (HCC) Given 07/28/2024 2:48 PM EST 22.5 mg Dorsogluteal Right documented in this encounter Advance Directives * [...] and were consensually agreed upon. Care Teams Film Painter Relationship Specialty Start Date End Date Urbano Chavez DO [address] [place] [address] PCP - General Family Medicine 12/10/18 documented as of this encounter
--- OUTSIDE RECORDS SUMMARY | 2024-07-30 15:34 | External Medical Summary ---
Author Name Unknown Address Unknown Organization K1F:[facility] [address] [facility]. [place] [address] Laboratory Report Ordering Provider Test Date Status BRAYDEN SANDRA 07/21/2024 10:43:04 Final Every two weeks for three mo nths, then every month (patients with moderate hep impairment every week for one month, every two weeks for two months, then every month) Observation Date Value Abnormality Reference (Units ) Status BUN 07/21/2024 10:43:04 25 Above high normal 6-20 (mg/dL) Final Creatinine 07/21/2024 10:43:04 1.0 0.6-1.2 (mg/dL) Final Glomerular filtration rate/1.73 sq M.predicted [Volume Rate/Area] in Serum, Plasma or Blood by Creatinine-based formula (CKD-EPI) 07/21/2024 10:43:04 81 >=60 (mL/min) Final eGFR is calculated based on the CKD-EPI 2020 equation. Sodium 07/21/2024 10:43:04 142 135-146 (m mol/L) Final Potassium 07/21/2024 10:43:04 3.9 3.5-5.1 (m mol/L) Final Cl 07/21/2024 10:43:04 108 Above high normal 98 -107 (mmol/L) Final CO2 07/21/2024 10:43:04 25 22-32 (mmo l/L) Final Anion gap 07/21/2024 10:43:04 9 7-15 (mmol /L) Final Glucose 07/21/2024 10:43:04 115 70-120 (mg /dL) Final Albumin 07/21/2024 10:43:04 3.9 3.8-5.0 (g /dL) Final AST (Aspartate aminotransferase) 07/21/2024 10:43:04 65 Above high normal 10-50 (U/L) Final Alk Phos 07/21/2024 10:43:04 83 35-130 (U/ L) Final Bilirubin, Total 07/21/2024 10:43:04 0.5 <=1 .2 (mg/dL) Final Calcium 07/21/2024 10:43:04 8.9 8.4-10.2 ( mg/dL) Final Protein 07/21/2024 10:43:04 6.3 6.0-8.3 (g /dL) Final ALT (Alanine aminotransferase) 07/21/2024 10:43:04 119 Above high normal 10-50 (U/L) Final Performing Location LABORATORY [address] [address]
--- OUTSIDE RECORDS SUMMARY | 2024-07-30 15:34 | External Medical Summary | Summary of Care ---
Author Name Unknown Organization [facility] Address [address] [place] [address] Phone [phone] Care Team Providers Care Contact Center Engineer Name Role Phone ScottUrbano DO Primary Care Provider [phone] Reason for Visit * Reason Comments Outpatient Testing Encounter Details Date Type Department Care Team (Late st Contact Info) Description 07/21/2024 10:35 AM EST Laboratory Laboratory, [facility] [address] [place] [address] [facility], Lab [address] [place] [address] Prostate cancer (HCC) Allergies No known active allergiesdocumented as of this encounter (statuses as of 07/21/2024) Medications Medication Sig Dispensed Refills Start Date End Date Status finasteride (PROSCAR) 5 MG TabletIndications:Marin ign non-nodular prostatic hyperplasia without lower urinary tract symptoms Take 1 Tab by mouth daily. 30 Tab 11 11/05/2017 Active metoprolol succinate XL (TOPROL XL) 50 MG [id number]:Tachy cardia,Paroxysmal atrial fibrillation (HCC) Take 1 Tab [...] as of this encounter (statuses as of 07/21/2024) Active Problems Problem Noted Date Diagnosed Date [...] as of this encounter (statuses as of 07/21/2024) Resolved Problems Problem Noted Date Diagnosed Date Resolved Date Hyperlipidemia 04/12/2015 11/04/2016 HTN, white coat 07/28/2014 11/05/2017 Palpitations 07/28/2014 11/04/2016 documented as of this encounter (statuses as of 07/21/2024) Immunizations Name Administration Dates Next Due COVID-19 [...] No 11/05/2019 documented as of this encounter Plan of Treatment Upcoming Encounters Date Type Department Care Team (Late st Contact Info) Description 07/28/2024 3:00 PM EST Office Visit [facility]ematology[facility]On[facility] [place] [facility] [address] Stella Bess CRNP [address] [place] [address] [place] [address] 07/28/2024 3:15 PM EST Immunization/Inject ion Hematology/Oncology Treatment, [place] [address] [facility] [place] [address] 08/13/2024 9:30 AM EST Pharmacy Pharmacy Hematology Oncology [facility] [place] [address] [place] [address] [facility] [place] [facility] Hem/Onc [address] [place] [address] Pending Results Name Type Priority Associated Diagnoses Date /Time COMPREHENSIVE METABOLIC PANEL Lab STAT Prostate cancer (HCC) 07/21/2024 10:43 AM EST Scheduled Procedures Name Priority Associated Diagnoses Date/Ti [...] or Tdap) 05/26/2022 05/26/2012 COVID-19 Vaccine ( season) 2024 07/21/2021, 11/12/2020, 10/17/2020 Influenza Vaccine [...] this encounter Medical Devices Implanted Type Area Cytopathology Technologist Device Identifier Shelf Expiration Date Model / Serial / Lot Suture Steel 6 B&S19 M654g - [id number] Implanted:Qty : 7 on 11/11/2019 by Ceferino Larson MD at OR [facility] [place] Sternum JNJ : [employer] 07/15/2024 M654G / / [id number] Valve Heart Mitral Epic 33mm - [id number] - [id number] Implanted:Qty : 1 on 11/11/2019 by Ceferino Larson MD at OR [facility] [place] N/A: Heart ST [employer] : CARDIOVASCULAR [id number] 06/22/2023 [id number]- 00 / [id number] / [id number] documented as of this encounter Visit Diagnoses Diagnosis Prostate cancer (HCC) Malignant neoplasm of prostate [...] and were consensually agreed upon. Care Teams Contact Center Engineer Relationship Specialty Start Date End Date Urbano Chavez DO [address] [facility] [place] [address] PCP - General Family Medicine 12/10/18 documented as of this encounter
--- OUTSIDE RECORDS SUMMARY | 2024-07-30 15:34 | External Medical Summary | Summary of Care ---
Author Name Unknown Organization [facility] Address [address] [place] [address] Phone [phone] Care Team Providers Care Manager Export Name Role Phone Urbano Chavez DO Primary Care Provider [phone] Reason for Visit * Reason Comments Medication Management Encounter Details Date Type Department Care Team (Late st Contact Info) Description 07/22/2024 9:30 AM [facility] Pharmacy Pharmacy Hematology Oncology [facility] [address] [place] [address] [facility] [place], [facility] Hem/Onc [address], [place] [id number] Prostate cancer (HCC)* Allergies No known active allergiesdocumented as of this encounter (statuses as of 07/22/2024) Medications Medication Sig Dispensed Refills Start Date End Date Status finasteride (PROSCAR) 5 MG TabletIndications:Marin ign non-nodular prostatic hyperplasia without lower urinary tract symptoms Take 1 Tab by mouth daily. 30 Tab 11 11/05/2017 Active metoprolol succinate XL (TOPROL XL) 50 MG [id number]:Tachy cardia,Paroxysmal atrial fibrillation (HCC) Take 1 Tab [...] this encounter Progress Notes * Alicia Delgado, [facility] - 07/22/2024 10:28 AM EST MEDICATION THERAPY MANAGEMENT ABIRATERONE TREATMENT PROGRESS NOTE Ancelmo Vazquez" Noss [phone] Patient Phone Numbers Preferred Lab: [facility] Specialty Pharmacy: [facility] Communication: Spoke to: Patient Treatment: Medication: Abiraterone (Zytiga) Indication/Staging/Diagnosis Code: MCRPC / C61 Dose: 1000mg daily Administration: empty stomach (1 hour before or 2 hours after a meal) Start Date: 04/28/24 Primary Insurance Processing Clerk/Oncologist: Dr Ahsan Lujan Additional Therapy: Prednisone 5mg daily Supportive Care Meds: Leuprolide Prophylactic Meds: See antihypertensive Relevant Chronic Medications: Category Medications Pertinent Notes Antihypertensives Metoprolol XL 50mg BID Per cardiology Anticoagulation ASA 81mg daily Per cardiology Treatment History: None Interval History: Denies APAP or alcohol use. States he will take tramadol occasionally for pain managment Reports stable BP < 150/90 Reports total hip replacement scheduled 07/30/24 and will be unable to drive for lab work until 08/25/24 Reports intended weight loss siting 6 lb loss so far No other concerns, tolerating therapy well Changes to medication list since last visit? No Assessment and Plan: ALT increasing to 2.4 times ULN AST increasing to 1.3 times ULN Per PI, no dose adjustment recommended for LFTs < 5 times ULN Advised pt to limit APAP and alcohol use Will monitor closely BUN elevated Encouraged to increase fluid intake Will monitor closely All other labs stable Continue BP monitoring and contact radio division officer if BP > 150/90 Advised pt abiraterone/prednisone does not increase bleeding risk or cause wound healing impairmentand he can continue treatment during surgery Advised pt he can continue weight loss initiative. Advised pt to contact office if weight loss becomes unintentional. Pt replied with understanding Continue current therapy Advised pt to repeat labs when able to drive Tentatively scheduled pt for MTM follow up 08/25/24 Pt advised to contact office if unable to drive/obtain labs at that time Assessment of compliance: compliant Assessment of adverse effects attributed to drug therapy: Edema/fluid retention - absent HTN - absent Joint swelling or discomfort - absent Arthralgias/Myalgias - absent Diarrhea/Constipation - absent Dose adjustment needed based on lab or adverse drug reaction? No Follow up: 1 week OV; 08/25 weeks MTM Alicia Delgado, PharmD, BCOP Clinical Pharmacist, [facility] Oral Chemotherapy [facility] 07/22/2024, 10:48 AM Monitoring Parameters: Estimated CrCl Serum creatinine: 1 mg/dL 07/21/24 1043 Estimated creatinine clearance: 80.2 mL/min Hepatitis panel [...] Pertinent labs: Latest Reference Range & Units 06/23/24 16:19 07/07/24 15:22 07/21/24 10:43 Albumin 3.8 - 5.0 g/dL 4.1 4.1 3.9 AST 10 - 50 U/L 40 51 (H) 65 (H) ALT 10 - 50 U/L 63 (H) 84 (H) 119 (H) Alkaline Phosphatase 35 - 130 U/L 86 80 83 Bilirubin, Total <=1.2 mg/dL 0.5 0.5 0.5 Latest Reference Range & Units 06/23/24 16:19 07/07/24 15:22 07/21/24 10:43 BUN 6 - 20 mg/dL 29 (H) 21 (H) 25 (H) CREATININE 0.6 - 1.2 mg/dL 1.1 1.0 1.0 EGFR >=60 mL/min 77 82 81 Time Spent on Encounter: 21 - 25 minutes Encounter Group: Oncology Encounter Interventions Item Category: Oral Chemotherapy Abiraterone Problem/Rationale: Safety: Needs additional monitoring - Medication Requires monitoring Pharmacist Intervention(s): Lab monitoring, Non-pharmacological intervention provided, and Toxicitymonitoring Magnitude of Intervention: Monitoring with direction (Level 1) documented in this encounter Plan of Treatment Upcoming Encounters Date Type Department Care Team (Late st Contact Info) Description 07/28/2024 3:00 PM EST Office Visit Hematology/Oncology Ciro Gamino [place] [address] [place] [address] Stella Bess CRNP [address] [place] [address] [place] [address] 07/28/2024 3:15 PM EST Immunization/Inject ion Hematology/Oncology Treatment, [place] [address] [place] [address] 08/25/2024 9:30 AM EST Pharmacy Pharmacy Hematology Oncology [facility] [address] [place] [address] [facility] [place], [facility] Hem/Onc [address] [place] [address] Scheduled Procedures Name Priority Associated Diagnoses Date/Ti [...] this encounter Medical Devices Implanted Type Area Social Secretary Device Identifier Shelf Expiration Date Model / Serial / Lot Suture Steel 6 B&S19 M654g - [id number] Implanted:Qty : 7 on 11/11/2019 by Ceferino Larson MD at [place] [facility] [place] Sternum [employer] : [employer] 07/15/2024 M654G / / [id number] Valve Heart Mitral Epic 33mm - [id number] - [id number] Implanted:Qty : 1 on 11/11/2019 by Ceferino Larson MD at OR [facility] [place] N/A: Heart ST [employer] : CARDIOVASCULAR [id number] 06/22/2023 [id number]- 00 / [id number] / [id number] documented as of this encounter Visit Diagnoses [...] and were consensually agreed upon. Care Teams Manager Export Relationship Specialty Start Date End Date Urbano Chavez DO [address] [facility] [place] [id number] PCP - General Family Medicine 12/10/18 documented as of this encounter
--- OUTSIDE RECORDS SUMMARY | 2024-07-30 15:34 | External Medical Summary | Summary of Care ---
Author Name Unknown Organization [facility] Address [address] [place] [address] Phone [phone] Care Team Providers Care Pizza Chef Name Role Phone ScottUrbano DO Primary Care Provider [phone] Reason for Visit * Reason Onset Date Comments Medication Question 04/15/2024 Encounter Details Date Type Department Care Team (Late st Contact Info) Description 04/15/2024 Telephone Hematology/Oncology [facility] [address] [facility] [place] [address] Chicho Lujan MD [address] [place] [address] Medication Question Allergies No known active allergiesdocumented as of this encounter (statuses as of 07/15/2024) Medications Medication Sig Dispensed Refills Start Date End Date Status finasteride (PROSCAR) 5 MG TabletIndications:Benig n non-nodular prostatic hyperplasia without lower urinary tract symptoms Take 1 Tab by mouth daily. 30 Tab 11 11/05/2017 Active metoprolol succinate XL (TOPROL XL) 50 MG [id number]:Tachyca rdia,Paroxysmal atrial fibrillation (HCC) Take 1 Tab by [...] a day as needed for Anxiety. Active documented as of this encounter (statuses as of 07/15/2024) Active Problems Problem Noted Date Diagnosed Date [...] as of this encounter (statuses as of 07/15/2024) Resolved Problems Problem Noted Date Diagnosed Date Resolved Date Hyperlipidemia 04/12/2015 11/04/2016 HTN, white coat 07/28/2014 11/05/2017 Palpitations 07/28/2014 11/04/2016 documented as of this encounter (statuses as of 07/15/2024) Immunizations Name Administration Dates Next Due COVID-19 [...] encounter Miscellaneous Notes * Telephone Encounter - Cherelle Castellanos assistant tennis professional - 04/15/2024 4:22 PM EDT Patient calling about clarification on medication Casodex. Hem/onc patient, trans to specialty line Cherelle Elaine Warpman III [facility] 04/15/2024,4:23 PM documented in this encounter Plan of Treatment Upcoming Encounters Date Type Department Care Team (Late st Contact Info) Description 07/28/2024 3:00 PM EST Office Visit Hematology/Oncology [place] [address] [facility] [place] [address] Stella Bess CRNP [address] [place] [address] 07/28/2024 3:15 PM EST Immunization/Inject ion Hematology/Oncology Treatment, [place] [address] [place] [address] 08/13/2024 9:30 AM EST Pharmacy Pharmacy Hematology Oncology [facility] [address] [place] [address] [facility] Hem/Onc [address] [place] [address] Scheduled Procedures Name Priority Associated Diagnoses Date/Ti [...] this encounter Medical Devices Implanted Type Area Workers Compensation Attorney Device Identifier Shelf Expiration Date Model / Serial / Lot Suture Steel 6 B&S19 M654g - [id number] Implanted:Qty : 7 on 11/11/2019 by Ceferino Larson MD [place] [facility] [place] Sternum [employer] : [employer] 07/15/2024 M654G / / [id number] Valve Heart Mitral Epic 33mm - [id number] - [id number] Implanted:Qty : 1 on 11/11/2019 by Ceferino Larson MD [place] [facility] [place] N/A: Heart ST [employer] : CARDIOVASCULAR [id number] 06/22/2023 [id number]- 00 / [id number] / [id number] documented as of this encounter Advance Directives * Full Code [...] and were consensually agreed upon. Care Teams Pizza Chef Relationship Specialty Start Date End Date Urbano Chavez DO [address] [place] [address] PCP - General Family Medicine 12/10/18 documented as of this encounter
--- OUTSIDE RECORDS SUMMARY | 2024-07-30 15:34 | External Medical Summary | Summary of Care ---
Author Name Unknown Organization [facility] Address [address] [place] [address] Phone [phone] Care Team Providers Care Jack Spooler Tender Name Role Phone Urbano Chavez DO Primary Care Provider [phone] Reason for Visit * Reason Comments Outpatient Testing Encounter Details Date Type Department Care Team (Late st Contact Info) Description 07/28/2024 3:40 PM EST Laboratory Laboratory [facility] [address] [place] [address] [facility] [address] [place] [address] Prostate cancer (HCC) Allergies No known active allergiesdocumented as of this encounter (statuses as of 07/28/2024) Medications finasteride (PROSCAR) 5 MG TabletIndications :Benign non-nodular prostatic hyperplasia without lower urinary tract symptoms Take 1 Tab by mouth daily. 30 Tab 11 8 Active metoprolol succinate XL (TOPROL XL) 50 MG [id number]:T achycardia,Paroxy smal atrial fibrillation (HCC) Take 1 [...] the morning. 120 Tablet 5 4 Active traMADol HCl 50 MG Oral Tablet (Ultram) Take 1 Tablet by mouth every 6 hours as needed. Active Tamsulosin HCl 0.4 MG Oral Capsule (Flomax) Take 1 Capsule by mouth in the morning. Active documented as of this encounter (statuses [...] of Assessment Author No 11/03/2019 10:33 PM Courtney Pérez RN * Are you blind or do you have serious difficulty seeing, even when wearing glasses? Answer Date of Assessment Author No 11/05/2019 4:10 AM Keny Chino RN * Do you have serious difficulty walking or climbing stairs? (5 years old or older) Answer Date of Assessment Author No 11/05/2019 4:00 PM EST Desean Coker RN * Do you have difficulty dressing or bathing? (5 years old or older) Answer Date of Assessment Author No 11/05/2019 4:10 AM Keny Chino RN * Because of a physical, mental, [...] Entry Date Author No 11/05/2019 4:10 AM EST Keny Ta RN documented in this encounter Plan of Treatment Upcoming Encounters Date Type Department Care Team (Late st Contact Info) Description 08/25/2024 9:30 AM EST Pharmacy Pharmacy Hematology Oncology [facility] [address] [place] [address] [facility] [place] Hem/Onc [address] [place] [address] 10/21/2024 11:10 AM EST Laboratory Laboratory, [address] [phone] [facility], Lab [address] [place] [phone] 10/28/2024 11:00 AM EST Office Visit Hematology/Oncology [facility] [address] [place] [address] Chicho Lujan MD [address] [place] [address] 10/28/2024 11:30 AM EST Immunization/Injecti on Hematology/Oncology Treatment, [place] [address] [place] [phone] Pending Results Name Type Priority Associated Diagnoses Date /Time PSA Lab Routine Prostate cancer (HCC) 07/28/2024 3:44 PM EST Scheduled Procedures Name Priority Associated Diagnoses [...] this encounter Medical Devices Implanted Type Area Critical Care Educator Device Identifier Shelf Expiration Date Model / Serial / Lot Suture Steel 6 B&S19 [id number] - [id number] Implanted:Qty : 7 on 11/11/2019 by Ceferino Larson MD at [facility] Sternum [place] : [employer] 07/15/2024 [id number] / / [id number] Valve Heart Mitral Epic 33mm - [id number] - [id number] Implanted:Qty : 1 on 11/11/2019 by Ceferino Larson MD at [facility] N/A: Heart [facility] [employer] : CARDIOVASCULAR [id number] 06/22/2023 [id number] / [id number] / [id number] documented as of this encounter Visit Diagnoses [...] and were consensually agreed upon. Care Teams Jack Spooler Tender Relationship Specialty Start Date End Date Urbano Chavez DO [address] [facility] [place] [address] PCP - General Family Medicine 12/10/18 documented as of this encounter
[2024-07-30] MEDS: ASCORBIC ACID 500 MG TAB PO SCH (17:32)
[2024-07-30] MEDS: TAMSULOSIN HCL 0.4 MG CAP PO SCH (17:32)
[2024-07-30] MEDS: TRANEXAMIC ACID / 0.7% NACL 1,000 MG/100 ML BAG IV SCH (18:12)
[2024-07-30] MEDS: ASPIRIN 81 MG ECTAB PO SCH (20:43)
[2024-07-30] MEDS: METOPROLOL SUCC 50MG EXT REL TAB PO SCH (20:43)
[2024-07-30] MEDS: PRAVASTATIN SOD 10 MG TAB PO SCH (20:44)
[2024-07-30] MEDS: DOCUSATE SODIUM 100 MG CAP PO SCH (20:45)
[2024-07-30] MEDS: SENNA 8.6 MG TAB PO SCH (20:46)
[2024-07-30] MEDS ORDERED: SENNA 8.6 MG TAB PO SCH (21:00)
[2024-07-30] MEDS ORDERED: Nursing to Pharmacy Communication SCH (21:00)
[2024-07-31 00:06] VITALS: RESP 16
[2024-07-31 04:09] VITALS: O2SAT 96
[2024-07-31] MEDS: ONDANSETRON INJ 2 MG/ML 2 ML VIAL IV PRN (05:39)
[2024-07-31 07:04] VITALS: BP 112/65; TEMP 98.6
[2024-07-31 07:28] LABS: Basophils # (auto) 0.01 K/uL (0.00-0.20); Basophils % (auto) 0.1 %; Eosinophils # (auto) 0.04 K/uL (0.00-0.50); Eosinophils % (auto) 0.5 %; Hematocrit (blood only) 33.2 % (42.0-52.0); Hemoglobin 11.5 g/dl (14.0-18.0); Immature Granulocytes # (auto) 0.03 K/uL (0.01-0.20); Immature Granulocytes % (auto) 0.4 %; Lymphocytes # (auto) 0.51 K/uL (1.20-3.40); Lymphocytes % (auto) 6.9 %; Mean Corpuscular Hemoglobin 32.8 pg (25.0-34.0); Mean Corpuscular Hgb Conc 34.6 g/dL (32.0-36.0); Mean Corpuscular Volume 94.6 fL (80.0-100.0); Monocytes # (auto) 1.08 K/uL (0.11-0.59); Monocytes % (auto) 14.6 %; Neutrophils # (auto) 5.74 K/uL (1.40-6.50); Neutrophils % (auto) 77.5 %; Platelet Count 105 K/uL (130-400); RDW Coefficient of Variation 12.6 % (11.5-14.5); RDW Standard Deviation 43.7 fL (36.4-46.3); Red Blood Count 3.51 M/uL (4.70-6.10); White Blood Count 7.41 K/ul (4.8-10.8)
[2024-07-31] MEDS: MULTIVITAMIN TAB PO SCH (07:33)
[2024-07-31] MEDS: FAMOTIDINE 20 MG TAB PO SCH (07:33)
[2024-07-31] MEDS: dexAMETHasone 10 MG in SYRINGE 0 ML IV SCH (07:33)
[2024-07-31] MEDS: FINASTERIDE 5 MG TAB PO SCH (07:33)
[2024-07-31 07:50] LABS: BUN Creatinine Ratio 24.4 (10-20); Calcium 8.5 mg/dl (8.6-10.3); Creatinine Clr Calc Pharmacy 96.7 ml/min; Potassium 3.8 mmol/L (3.5-5.1)
--- NOTE | 2024-07-31 07:50 | Orthopedic Progress Note ---
Date of Service July 31, 2024 Assessment & Plan (1) Status post left hip replacement: Plan: 69-year-old gentleman postop day 1 from left hip replacement doing pretty well. Pains controlled. Hips located. He is neurologically intact. Plan: 1. DVT prophylaxis including thigh-high teds, SCDs, aspirin twice a day. 2. PT/OT. He can weight-bear as tolerated. Left total hip protocol. 3. Pain control. Doing pretty well with current pain regimen. 4. Disposition. Plan to discharge to home with some home health if he does okay in therapy today. Admission and Anticipated Discharge Date Admission Date: July 30, 2024 Subjective 69-year-old gentleman postop day 1 from left hip replacement. He is doing pretty well. Reports some soreness in his hip. No chest pain or shortness of breath. Not feeling dizzy or lightheaded. Pains been pretty well-controlled. Physical Exam Physical Exam: Physical nation was a pleasant middle-age male. Lying bed looks pretty comfortable. Examination left hip and leg reveals the dressing be clean dry and intact. Thigh is soft and supple. Leg lengths are equal. He can dorsiflex and plantarflex his foot appropriately. Having difficulty doing a straight leg raise. Respiratory: normal respiratory effort, lungs clear to auscultation Cardiovascular: RRR, no murmur, no edema Gastrointestinal (Abdomen): normal bowel sounds, soft, nontender, no hepatosplenomegaly Results & Data Vital Signs (Past 12 Hours) Vital Signs Temp Pulse Resp BP Pulse Ox O2 Del Method 07/31/24 07:03 37.0 C 68 16 112/65 96 Room Air 07/31/24 04:08 36.7 C 66 16 111/70 96 Room Air 07/31/24 00:00 37.1 C 69 16 124/79 95 CPAP 07/30/24 20:00 CPAP Laboratory Results Hemoglobin is 11.5. Hematocrit is 33.2. Electrolytes are pending.
[2024-07-31] MEDS ORDERED: predniSONE 5 MG TAB PO SCH (09:00)
[2024-07-31 09:30] VITALS: PULSE 71
--- NOTE | 2024-08-03 14:14 | Discharge Summary ---
Date of Service August 03, 2024 Admission HPI (Per Admitting) . The patient is a 69-year-old gentleman well-known to me from a previous right hip replacement done 4 years ago. 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 He had extensive treatment for this and recovered. He had his right hip replaced 4 years ago and is done well from this. Over the past 2 years he developed increased pain discomfort and stiffness in his left hip. He now like present for surgical treatment. The patient has been recently diagnosed with prostate cancer with a small mets to his right acetabulum. Has been radiated. He is on some chemotherapy and doing pretty well. Left hip debilitating and he like to have it checked. He is got groin and thigh pain. Said no recurrent history of infection or sepsis in the past 4 to 5 years. Admission Exam (Per Admitting) . Physical examination reveals a pleasant healthy appearing male. Examination of the left hip and leg reveals patient ambulates with a markedly antalgic gait. About a half a centimeter shorter on the side compared to the other side. Got a very stiff hip with limited internal rotation. Is got pain with internal rotation. Negative straight leg raise. No knee effusion. He is neurologically intact. Principal Diagnosis Same as "Discharge Diagnosis" noted below under Discharge Instructions. Discharge Data Procedures Performed Operation Date: 07/30/24 08:50 Actual Procedures p Left Total Hip Arthroplasty - Zheng Rice MD Hospital Course (1) Status post left hip replacement: This is a 69 year old patient admitted on 07/30/24 and underwent total hip arthroplasty. He tolerated the procedure well and there were no complications. Transferred to the PACU post op and later to the orthopedic floor for further care. He was given ancef for antibiotic prophylaxis. He was also given CARLY stockings, SCDs, and aspirin for DVT prophylaxis. Hemoglobin, hematocrit, and vital signs were monitored during his hospital stay and remained stable. Did not require any blood transfusions. There were no complications during his hospital stay. By post op day #1 the patient was tolerating a regular diet, pain was reasonably controlled with oral pain medicine, and he was participating in physical therapy. On post op day #1 the patient was discharged home and set up with home health care. He was given printed discharge instructions including prescriptions for extra strength tylenol, aspirin, ketorolac, zofran, senokot, flomax, and tramadol. Continue hip precautions. Continue physical therapy, weight bearing as tolerated. Continue CARLY stockings. Follow up approximately 2 weeks post op or sooner if there are problems or concerns. Discharge Plan Discharge Items Patient Disposition: Home - Home Health Services Reason For Visit: Left Hip Osteoarthritis Discharge Diagnosis: Left Hip Replacement Activity: Per Instructions section Activity Comment: Follow/Obey hip precautions at all times Weightbearing: Full weightbearing Weightbearing Comment: Weightbear as tolerated obeying hip precautions at all times. Non-emergency contact: Surgeon Call non-emergency contact if: you have any medication questions Follow-up/Referrals: Urbano Chavez DO [Primary Care Provider] - Diet: Regular Addtl Attending Provider Instructions: ACTIVITY RECOMMENDATIONS: Diet: * You may resume previous diet. Physical Therapy: * Aggressive physical therapy is not usually needed. You will learn to take care of yourself safely and walk. * Follow the "Hip Precautions Instructions." * In some cases, the social worker aide at the hospital will arrange to have a therapist come to your house for the first couple of weeks to help you learn these skills. * You need to practice on your own or with the help of a family member as needed. * When you learn these skills, most of the therapy can be done on your own. Home Exercise: * You were shown a series of exercises in the hospital. Do these exercises three to four times each day including the exercises you were shown in physical therapy. Walking: * Get up and walk several times each day. For the first four weeks, try not to stand or walk for more than one hour at a time. If you do stand or walk for more than one hour, you will not hurt anything, but your leg will likely swell. * As you feel comfortable, you may change from the walker or crutches to a cane and then to independent walking. MEDICATIONS: New Medicine: * You will likely be taking one or more of these medicines: 1. Tramadol - Take, as directed, when you need it, every six hours to control your pain. 2. Aspirin - Thins your blood to lessen the chance of forming a blood clot. * The most common side effects of pain medicine and iron are nausea and constipation. If nausea or constipation is too much of a problem or if you have any questions about your new medicines or doses, call [facility] at . We will try to help you manage these issues. "VERY IMPORTANT TO READ AND REVIEW" Pain: * The immediate post-operative period after hip replacement surgery is often quite painful. * You are given a prescription for pain medicine. You should take it, as directed, when you need it, especially before physical therapy and before going to bed. Pain that interferes with sleep is very common and can last several months. * You will likely need pain medicine for the first two to four weeks. It will not stop all of the pain. The pain will lessen and as you feel better, you may change to milder pain medicine such as Tylenol. * The most common side effects of pain medicine are nausea and constipation, so don't take more than you need. SPECIAL CARE INSTRUCTIONS: TEDs/Elastic Stockings: * The white elastic stockings help limit swelling and prevent blood clots from forming in your legs. The more you wear them, the more they work. * Wear them for six weeks. Incision Site Care: * Remove dressing postoperative day 2 and then shower. Keep direct shower pressure off the incision site. * After showering, cover edith with dry gauze and change daily or more frequently if the dressing is getting saturated with drainage. * May completely stop using bandage if wound is dry and no drainage * Edith are removed between 2 and 3 weeks post-op. If your follow-up appointment is made before 2 weeks, please have your appointment re- scheduled. It is too early to remove the edith. Prevention of Infection: * Take antibiotics one hour before any dental cleaning, dental work, urological procedure, gastrointestinal procedure or any invasive surgery in order to prevent your new joint from getting infected. * You may get the antibiotics from the doctor performing the procedure or you may call our office at before and we will call in a prescription to the pharmacy of your choice. Things to Watch For: * Drainage from the incision site that occurs more than one week after your surgery. * Severely increased leg pain or swelling. * Increased redness at the incision site. * Fever above 102 degrees Fahrenheit. * Unusual chest pain or shortness of breath. * Unusual pain or burning with urination. Call [facility] at with any of the above problems or if you have any questions about your medicines or recovery. FOLLOW UP VISIT: Make an appointment to see your doctor for approximately two weeks after surgery for a progress check and staple removal by calling the office at . Pending Studies at Discharge: No Stand-Alone Forms: My [facility] [employer], Smoking Cessation Medications and DC Order Prescriptions: Continued abiraterone 250 mg tablet 1,000 mg PO QAM Rx Instructions: must be taken on empty stomach, at least 1 hr before or 2 hrs after a meal/food clonazepam [Klonopin] 0.5 mg tablet 0.5 mg PO HS PRN (Reason: Sleep) prednisone 5 mg tablet 5 mg PO QAM metoprolol succinate 50 mg tablet extended release 24 hr 50 mg PO BID Qty: 180 3RF famotidine 20 mg tablet 20 mg PO QAM Qty: 90 3RF finasteride 5 mg tablet 5 mg PO QAM Qty: 90 3RF tramadol 50 mg tablet 50 mg PO Q8H PRN (Reason: pain) Qty: 60 0RF (DME) [place] [facility] Instructions .MEDSUPPLY Qty: 1 0RF Rx Instructions: As directed pravastatin 10 mg tablet 10 mg PO QPM Qty: 90 3RF sennosides [Senokot] 8.6 mg tablet 8.6 mg PO BID 14 Days Qty: 28 0RF Rx Instructions: Take two times a day to prevent/treat constipation aspirin [Emilia Low Dose Aspirin] 81 mg tablet,delayed release (DR/EC) 81 mg PO BID 45 Days Qty: 90 0RF Rx Instructions: Take to prevent blood clots. tramadol 50 mg tablet 50 - 100 mg PO Q6 PRN (Reason: pain) Qty: 40 0RF Rx Instructions: Take as needed for pain acetaminophen [Tylenol Extra Strength] 500 mg tablet 1,000 mg PO TID 30 Days Qty: 180 0RF Rx Instructions: Take 3 times per day to lessen pain. ketorolac 10 mg tablet 10 mg PO Q6 5 Days Qty: 20 0RF Rx Instructions: Take 4 times per day with food for 5 days to lessen pain and swelling. ondansetron 4 mg tablet,disintegrating 4 mg PO Q8 PRN (Reason: nausea) Qty: 20 1RF Rx Instructions: Take as needed for nausea (DME) Rory Aleman Misc See Rx Instructions .MEDSUPPLY Qty: 1 0RF Rx Instructions: As directed aspirin [Aspir-81] 81 mg Tablet,Delayed Release (Dr/Ec) 81 mg PO QAM Lupron Depot (3 month) 22.5 mg Syringe Kit 0 mg IM Q3M Rx Instructions: pt unsure of dosage, next dose 07/28/24 tamsulosin 0.4 mg capsule 0.4 mg PO QPM Rx Instructions: Take 30 mins after meal in evening. Admission Data Admit Date/Time: 07/30/24 10:20 Attending Provider: Zheng Rice Admit Provider: Zheng Rice Primary Care Provider: Urbano Chavez Other Providers: [facility],Home Health Other Interventions: Discharge Summary Assessment (RN) Last Done: 07/31/24 09:29
== END 2024-07-31 11:46 | disposition home health service (06) ==
LOC: PACUINP 06:25 → ASU 06:25 → 3W 13:26